=== PATIENT | male | born 1980 | race African-American/Black ===

== ENCOUNTER 2023-01-21 00:58 | Inpatient (IN) | payer MEDICAID, OTHER ==
[~2023-01-21] VITALS: Ht 190.5 cm; Wt 109.5 kg
[2023-01-21 01:27] LABS: Basophils # (auto) 0 10 ^3/uL (0-0.2); Basophils % (auto) 0.2 % (0.0-2.0); Eosinophils # (auto) 0 10 ^3/uL (0-0.8); Eosinophils % (auto) 0.4 % (0.0-7.0); Hematocrit 40.7 % (41.0-53.0); Hemoglobin 13.4 g/dL (13.5-17.5); Lymphocytes # (auto) 0.6 10 ^3/uL (0.4-5.4); Lymphocytes % (auto) 5.8 % (10.0-50.0); Mean Corpuscular Hemoglobin 28.1 pg (28.0-32.0); Mean Corpuscular Hgb Conc. 32.9 g/dL (32.0-36.0); Mean Corpuscular Volume 85.2 fL (80.0-100.0); Monocytes # (auto) 0.6 10 ^3/uL (0-1.3); Monocytes % (auto) 6.3 % (0.0-12.0); Neutrophils # (auto) 8.8 10 ^3/uL (1.6-8.6); Neutrophils % (auto) 87.3 % (37.0-80.0); Red Blood Cells 4.77 10^6/uL (4.5-5.90); White Blood Cell 10.1 10^3/uL (4.4-10.8)
[2023-01-21] MEDS ORDERED: SODIUM CHLORIDE 0.9% 3,250 ML IV ONE (01:30)
[2023-01-21] MEDS ORDERED: ACETAMINOPHEN 325 MG TAB PO ONE (01:30)
[2023-01-21 01:43] LABS: INR 1.06 (0.9-1.15); Prothrombin Time 11.1 sec (9.3-11.8)
[2023-01-21 01:48] LABS: Alanine Aminotransferase 42 U/L (7-40); Albumin 4.7 g/dL (3.2-4.8); Alkaline Phosphatase 49 U/L (46-116); Anion Gap 8 (5-15); Aspartate Aminotransferase 31 U/L (13-40); BUN/Creatinine Ratio 7.9 (10.0-20.0); Blood Urea Nitrogen 9 mg/dL (9-23); Calcium 9.1 mg/dL (8.7-10.4); Carbon Dioxide 23 mmol/L (20-30); Chloride 102 mmol/L (98-107); Glucose 125 mg/dL (74-106); Magnesium 1.8 mg/dL (1.6-2.6); Potassium 3.5 mmol/L (3.5-5.1); Sodium 133 mmol/L (136-145)
[2023-01-21 01:49] LABS: Total Protein 7.7 g/dL (5.7-8.2)
[2023-01-21 02:06] VITALS: PULSE 103; RESP 14; O2SAT 96
[2023-01-21 02:13] LABS: Bilirubin, Total 0.7 mg/dL (0.2-1.0)
[2023-01-21 02:43] LABS: Urine Bacteria NONE SEEN /hpf (None Seen); Urine Blood Negative /uL (Negative); Urine Clarity Clear (Clear); Urine Color Yellow (Yellow); Urine Protein, UAD 2+ (Negative); Urine Specific Gravity 1.022 (1.001-1.035); Urine WBC 1 /hpf (0 - 3); Urine pH 8.5 (5.0-8.0)
[2023-01-21 02:45] LABS: COVID19 ANTIGEN SOFIA FIA NEGATIVE (NEGATIVE)
[2023-01-21 02:46] LABS: Rapid Influenza A Negative (Negative); Rapid Influenza B Negative (Negative)
[2023-01-21] MEDS ORDERED: SODIUM CHLORIDE 0.9% 1,000 ML IV ONE (04:15)
[2023-01-21] MEDS ORDERED: IBUPROFEN 600 MG TAB PO ONE (04:30)
[2023-01-21] MEDS ORDERED: IOHEXOL 350 MG/ML 100ML IJ ONE (05:26)
[2023-01-21] MEDS ORDERED: cefTRIAXone 1GM/50ML D5W 50 ML IV ONE (05:30)
[2023-01-21 07:40] VITALS: PULSE 93; RESP 18; O2SAT 97
[2023-01-21] MEDS ORDERED: ENOXAPARIN SOD 100 MG/1 ML SYRINGE SC ONE (09:15)
[2023-01-21] MEDS ORDERED: MORPHINE SULFATE INJ 2 MG/ml SYRG IV PRN (09:15)
[2023-01-21] MEDS ORDERED: ASPirin 325 MG TAB PO ONE (09:15)
[2023-01-21] MEDS ORDERED: NITROGLYCERIN 0.4 MG SL TAB SL PRN (09:15)
[2023-01-21 09:28] LABS: Triglycerides 79 mg/dL (< 150)
[2023-01-21 09:29] LABS: LDL Cholesterol 110 mg/dL (< 100)
[2023-01-21 09:30] LABS: Cholesterol 171 mg/dL (< 200); HDL Cholesterol 54 mg/dL (40-59)
[2023-01-21] MEDS ORDERED: ENOXAPARIN SOD 120 MG/0.8 ML SYRINGE SC ONE (09:45)
[2023-01-21] MEDS: SODIUM CHLORIDE 0.9% 1,000 ML IV SCH ×3 (11:22→23:09)
[2023-01-21 13:47] LABS: Amphetamine Screen, Urine Neg (NEGATIVE); Barbiturate Scree,Urine Neg (NEGATIVE); Benzodiazephine Screen, Urine Neg (NEGATIVE); Cocaine Screen, Urine Neg (NEGATIVE); Opiate Scree,Urine Neg (NEGATIVE)
[2023-01-21 13:48] LABS: Cannabinoid Screen, Urine Neg (NEGATIVE); Phencyclidine Screen, Urine Neg (NEGATIVE)
[2023-01-21] MEDS: ACETAMINOPHEN 325 MG TAB PO PRN (23:08)
[2023-01-22] VITALS (8 sets, daily range): BP systolic 111–147; BP diastolic 68–97; PULSE 85–109; RESP 18–20; TEMP 98.1–101.6; O2SAT 95–99
[2023-01-22] MEDS ORDERED: MULT-777 OR (01:39)
[2023-01-22] MEDS ORDERED: APPLTAB PO (01:39)
[2023-01-22 06:56] LABS: Alanine Aminotransferase 47 U/L (7-40); Albumin 4.1 g/dL (3.2-4.8); Alkaline Phosphatase 49 U/L (46-116); Anion Gap 6 (5-15); BUN/Creatinine Ratio 7.8 (10.0-20.0); Blood Urea Nitrogen 7 mg/dL (9-23); Carbon Dioxide 26 mmol/L (20-30); Chloride 104 mmol/L (98-107); Glucose 103 mg/dL (74-106); Sodium 136 mmol/L (136-145)
[2023-01-22 06:57] LABS: Aspartate Aminotransferase 31 U/L (13-40); Bilirubin, Total 0.6 mg/dL (0.2-1.0); Total Protein 6.9 g/dL (5.7-8.2)
[2023-01-22 07:32] LABS: Hematocrit 39.6 % (41.0-53.0); Hemoglobin 12.9 g/dL (13.5-17.5); Mean Corpuscular Hemoglobin 27.6 pg (28.0-32.0); Mean Corpuscular Hgb Conc. 32.6 g/dL (32.0-36.0); Mean Corpuscular Volume 84.6 fL (80.0-100.0); Red Blood Cells 4.68 10^6/uL (4.5-5.90); White Blood Cell 7.6 10^3/uL (4.4-10.8)
[2023-01-22 07:35] LABS: Basophils % (manual) 0 (0.0-2.0); Blast Cells 0; Eosinophils % (manual) 0 (0-7); Metamyelocytes % 0; Myelocytes % 0; Promyelocytes % 0; Reactive Lymphocytes 0
[2023-01-22] MEDS: ACETAMINOPHEN 325 MG TAB PO PRN (08:31)
[2023-01-22] MEDS: cefTRIAXone 1GM/50ML D5W 50 ML IV SCH (08:32)
[2023-01-22 09:21] LABS: Band Neutrophils % (manual) 3; Lymphocytes % (manual) 20 (10.0-50.0); Monocytes % (manual) 14 (0-12)
[2023-01-22 09:22] LABS: Platelet Estimate Adequate; RBC Morphology Normal
[2023-01-22] MEDS: ASPirin 81 mg TAB PO SCH (10:51)
[2023-01-22] MEDS: ENOXAPARIN SOD 40 MG/0.4 ML SYRINGE SC SCH (10:52)
[2023-01-22] MEDS: SODIUM CHLORIDE 0.9% 1,000 ML IV SCH (15:15)
[2023-01-23] MEDS: SODIUM CHLORIDE 0.9% 1,000 ML IV SCH ×2 (01:15→11:38)
[2023-01-23] MEDS: ACETAMINOPHEN 325 MG TAB PO PRN (04:46)
[2023-01-23 05:00] VITALS: BP 145/81; PULSE 91; RESP 20; TEMP 98.5; O2SAT 95
[2023-01-23 08:00] VITALS: PULSE 88
[2023-01-23 09:00] VITALS: BP 136/72; PULSE 91; RESP 20; TEMP 98.9; O2SAT 96
[2023-01-23] MEDS: cefTRIAXone 1GM/50ML D5W 50 ML IV SCH (09:12)
[2023-01-23] MEDS: ASPirin 81 mg TAB PO SCH (09:12)
[2023-01-23] MEDS: ENOXAPARIN SOD 40 MG/0.4 ML SYRINGE SC SCH (09:12)
[2023-01-23] MEDS ORDERED: CEPH250C PO (11:09)
[2023-01-23] MEDS ORDERED: HYDR-4902 PO (11:09)
[2023-01-23] MEDS ORDERED: CLIN300C70 PO (11:09)
[2023-01-23] MEDS ORDERED: HYDROcodone-ACET 10/325MG TAB PO ONE (11:15)
[2023-01-23 13:00] VITALS: TEMP 37.2
== END 2023-01-23 14:31 | disposition home or self-care (01) | DRG 203 ==
LOC: ER 00:58 → TELE 09:09 → TELE-WESTW 09:09
PROVIDERS: ADMIT Nurse Practitioner Family; ATTEND Family Medicine
DX: R07.89 Other chest pain (principal); E87.1 Hypo-osmolality and hyponatremia; L03.115 Cellulitis of right lower limb; E11.9 Type 2 diabetes mellitus without complications; Z20.822 Contact with and (suspected) exposure to COVID-19; E66.9 Obesity, unspecified; Z68.30 Body mass index [BMI] 30.0-30.9, adult; Z83.3 Family history of diabetes mellitus
CPT/HCPCS: 36415; 71045; 71275; 80053; 80061; 80307; 81001; 83605; 83735; 83880; 84443; 84484; 85007; 85025; 85027; 85610; 85730; 87040; 87426; 87804; 93005; 93306; 93970; 96361; 96365; G0378

== ENCOUNTER 2024-11-17 00:50 | Inpatient (IN) | payer MEDICAID ==
[~2024-11-17] VITALS: Ht 190.5 cm; Wt 119.2 kg
[~2024-11-17 00:50] MED LIST: APPLTAB PO; CEPH250C PO; CLIN1CAP70 PO; HYDR-4902 PO; MULT-777 OR
[2024-11-17] MEDS ORDERED: PIPERACILLIN-TAZOB 3.375GM 100 ML IV ONE ×2 (01:45→03:00)
[2024-11-17] MEDS ORDERED: MORPHINE SULFATE INJ 2 MG/ml SYRG IV ONE (01:45)
[2024-11-17] MEDS ORDERED: VANCOMYCIN PER PHARMACY 0 MG IV SCH (01:45)
[2024-11-17] MEDS ORDERED: ACETAMINOPHEN 325 MG TAB PO ONE (01:45)
--- NOTE | 2024-11-17 01:46 | ED.PDOC ---
History of Present Illness(SKN HPI Comments Mr. Savage is a 44-year-old male with no past medical history who presented to the ER with a chief complaint of right lower extremity swelling and tenderness for 1 day. Patient reports that he noted right calf tenderness and swelling, along with erythema and warmth starting this morning, he has been also e xperiencing fever and chills, he experienced 5 episodes of vomiting, nonbloody, denies any recent traveling or sick contacts. Patient works as a [employer] and as long hours of standing. Denies numbness or tingling, any neurological deficits. Denies drug use. Patient has a similar episode in 2022. Also reports chronic vertigo. Denies palpitations/chest pain/abdominal pain/shortness of breath/diarrhea or constipation at this time. Patient seen and examined in ER. Right lower extremity is swollen, tender to touch peripherally in the calf muscle, his warm and erythematous. No rashes or wounds noted. Right inguinal lymphadenopathy noted on examination and tender induration in the right medial thigh. Active and passive range of motion intact. Chief Complaint: Lower Extremity Time Seen by MD: 01:20 History of Present Illness: Nurses Notes Allergies: Coded Allergies: NO KNOWN ALLERGIES (Unverified , 01/21/23) Home Meds Active Scripts Hydrocodone-Acetaminophen (Hydrocodone Bitartrate/AC 5-325 mg) 1 Tab Tab, 1 TAB PO Q6HR PRN, #30 TAB Prov:MALINI MEEK MD 01/23/23 Clindamycin Hcl (Clindamycin Hcl) 300 Mg Cap, 1 CAP PO TID, #30 CAP Prov:MALINI MEEK MD 01/23/23 Cephalexin (KEFLEX CAPSULE) 250 Mg Cp, 1 CAP PO QID, #40 CAP Prov:MALINI MEEK MD 01/23/23 Reported Medications Apple Cider Vinegar (Apple Cider Vinegar) 500 Mg Tab, 500 MG PO, TAB 01/22/23 Multiple Vitamins W/ Minerals (MULTI COMPLETE) Complete Cap, 1 OR, CAP 01/22/23 Information Source: Patient Mode of Arrival: Ambulatory Past Medical History PAST MEDICAL HISTORY: Denies Surgical History: Denies all surgeries Family History Family History: Unknown Social History Smoker: Non-Smoker Alcohol: Denies ETOH Use Drugs: Denies Drug Use Constitutional: reports: chills, fever EENTM: denies: blurred vision, double vision, ear bleeding, ear discharge, ear drainage, ear pain, ear ringing, eye pain, eye redness, hearing loss, mouth pain, mouth swelling, nasal discharge, nose bleeding, nose congestion, nose pain, photophobia, tearing, throat pain, throat swelling, voice changes, others Respiratory: denies: cough, hemoptysis, orthopnea, SOB at rest, shortness of breath, SOB with excertion, stridor, wheezing, others Cardiovascular: denies: chest pain, dizzy spells, diaphoresis, Dyspnea on exertion, edema, irregular heart beat, left arm pain, lightheadedness, palpitations, PND, syncope, others Gastrointestinal: denies: abdomen distended, abdominal pain, blood streaked bowels, constipated, diarrhea, dysphagia, difficulty swallowing, hematemesis, melena, nausea, poor appetite, poor fluid intake, rectal bleeding, rectal pain, vomiting, others Genitourinary: denies: burning, dysuria, flank pain, frequency, hematuria, incontinence, penile discharge, penile sore, pain, testicle pain, testicle swelling, urgency, others Neurological: denies: dizziness, fainting, headache, left sided numbness, left sided weakness, numbness, paresthesia, pre-existing deficit, right sided numbness, right sided weakness, seizure, speech problems, tingling, tremors, weakness, others Musculoskeletal: reports: joint swelling, muscle pain Integumetry: reports: change in color Allergic/Immunocompromised: denies: Difficulty Healing, Frequent Infections, Hives, Itching, others Hematologic/Lymphatic: denies: anemia, blood clots, easy bleeding, easy bruising, swollen glands, others Endocrine: denies: excessive hunger, excessive sweating, excessive thirst, excessive urination, flushing, intolerance to cold, intolerance to heat, unex plained weight gain, unexplained weight loss, others Psychiatric: denies: anxiety, bipolar disorder, depression, hopeless, panic disorder, schizophrenia, sleepless, suicidal, others Physical Exam General Appearance: Mild Distress HEENT: Other (Dry mucosal membranes) Neck: NOT DONE Respiratory: No Accessory Muscle Use, No Respiratory Distress, Normal Breath Sounds Cardiovascular: Tachycardia Breast Exam: Deferred Gastrointestinal: Non Tender, Normal Bowel Sounds Genitalia: Deferred Pelvic: Deferred Rectal: Deferred Extremities: Calf tenderness, Leg edema, Normal range of motion, Other (Right lower extremity is swollen, tender to touch peripherally in the calf muscle, his warm and erythematous. No rashes or wounds noted. Right inguinal ly mphadenopathy noted on examination and tender induration in the right medial thigh.) Neurologic: NOT DONE Cerebellar Function: NOT DONE Reflexes: NOT DONE Skin: Dry Lymphatic: Inguinal Node Tender (R) Was a procedure done? Was a procedure done?: No Differential Diagnosis (INTG) Differential Diagnosis: Abrasion, Cellulitis, Hematoma Differential Diagnosis: Abscess Abscess: Bacteremia, Erysipelas X-Ray, Labs, Meds, VS Vital Signs Date Time Temp Pulse Resp B/P (MAP) Pulse Ox O2 Delivery O2 Flow Rate FiO2 11/17/24 02:27 101.8 11/17/24 01:47 101.8 112 20 127/75 (92) 96 101.8 11/17/24 01:47 112 20 96 Room Air* 0 21 11/17/24 01:47 101.8 112 20 127/75 (92) 96 101.8 11/17/24 00:54 102.9 117 18 100/67 96 102.9 Lab Test 11/17/24 01:47 Range/Units White Blood Count 16.3 H 4.4-10.8 10^3/uL Red Blood Count 4.73 4.5-5.90 10^6/uL Hemoglobin 13.2 L 13.5-17.5 g/dL Hematocrit 39.2 L 41.0-53.0 % Mean Corpuscular Volume 82.9 80.0-100.0 fL Mean Corpuscular Hemoglobin 27.8 L 28.0-32.0 pg Mean Corpuscular Hemoglobin Concent 33.6 32.0-36.0 g/dL Red Cell Distribution Width 13.6 11.8-14.3 % Platelet Count 195 140-450 10^3/uL Mean Platelet Volume 7.8 6.9-10.8 fL Neutrophils (%) (Auto) 92.5 H 37.0-80.0 % Lymphocytes (%) (Auto) 3.6 L 10.0-50.0 % Monocytes (%) (Auto) 3.8 0.0-12.0 % Eosinophils (%) (Auto) 0.0 0.0-7.0 % Basophils (%) (Auto) 0.1 0.0-2.0 % Neutrophils # (Auto) 15.1 H 1.6-8.6 10 ^3/uL Lymphocytes # (Auto) 0.6 0.4-5.4 10 ^3/uL Monocytes # (Auto) 0.6 0-1.3 10 ^3/uL Eosinophils # (Auto) 0 0-0.8 10 ^3/uL Basophils # (Auto) 0 0-0.2 10 ^3/uL Nucleated Red Blood Cells 0.0 % Sodium Level 135 L 136-145 mmol/L Potassium Level 3.4 L 3.5-5.1 mmol/L Chloride Level 100 98-107 mmol/L Carbon Dioxide Level 24 20-31 mmol/L Anion Gap 11 5-15 Blood Urea Nitrogen 10 9-23 mg/dL Creatinine 1.25 0.700-1.30 mg/dL Glomerular Filtration Rate Calc 73 >90 mL/min BUN/Creatinine Ratio 8.0 L 10.0-20.0 Serum Glucose 104 74-106 mg/dL Hemoglobin A1c 6.6 H <5.7 % A1C Lactic Acid Level 2.4 *H 0.4-2.0 mmol/L Calcium Level 8.9 8.7-10.4 mg/dL Phosphorus Level 3.2 2.4-5.1 mg/dL Total Bilirubin 0.9 0.2-1.0 mg/dL Aspartate Amino Transferase (AST) 19 13-40 U/L Alanine Aminotransferase (ALT) 25 7-40 U/L Alkaline Phosphatase 37 L 46-116 U/L C-Reactive Protein High Sensitivity 12.49 H <1.0 mg/dL Total Protein 7.5 5.7-8.2 g/dL Albumin 4.5 3.2-4.8 g/dL Vitamin B12 Level Pending Vitamin D 25-Hydroxy Pending Thyroid Stimulating Hormone (TSH) 0.30 L 0.55-4.78 uIU/mL Current Medications Medications (Trade) Dose Ordered Sig/Francisco Route Start Time Stop Time Status Last Admin Sodium Chloride 2,450 ml @ 2,450 mls/hr ONCE ONCE IV 11/17/24 01:45 11/17/24 02:44 DC 11/17/24 02:13 Piperacillin Sod/ Tazobactam Sod 100 ml @ 100 mls/hr ONCE ONCE IV 11/17/24 02:00 11/17/24 02:59 DC 11/17/24 02:13 Acetaminophen (Tylenol Tablet Or Capsule) 1,000 mg ONCE ONCE PO 11/17/24 02:30 11/17/24 02:31 DC 11/17/24 02:27 Potassium Bicarbonate (Klor-Con/Ef) 50 meq ONCE ONCE PO 11/17/24 02:30 11/17/24 02:31 DC 11/17/24 02:54 Ketorolac Tromethamine (Toradol Injection) 15 mg ONCE ONCE IV 11/17/24 02:30 11/17/24 02:31 DC 11/17/24 02:55 X-Ray, Labs, Meds, VS Comment Lower extremity CT shows 1. No acute osseous abnormality. 2. Subcutaneous edema in the inner thigh and at the level of the knee which may reflect cellulitis. No fluid collection. 3. Right groin lymphadenopathy, likely reactive. Time of 1ST Reevaluation: 03:00 Reevaluation 1ST: Improved (Pain has improved overall feels better) Consultation: PCP Patient Education/Counseling: Diagnosis, Treatment Family Education/Counseling: No Family Present SEPSIS Sepsis Screen Date sepsis recognized/suspect: Nov 17, 2024 Time Sepsis recognized/suspect: 55 Recent Procedure: No On Antibiotic Therapy: No Respiratory Rate >20: No Heart Rate >90: Yes Temp<36 C (96.8 F) or >38.3 C: Yes SBP <90 or MAP <65 mmHG: No New Acute Mental Status Change: No Is the patient on CPAP, BIPAP,: No Physician Orders Blood Culture (11/17/24 01:33) Vancomycin Per Pharmacy (11/17/24 01:45) Rt Lower Dvt (11/17/24 01:36) Drug Screen (11/17/24 01:38) Urinalysis (11/17/24 01:38) Lower Extremity Non Joint Righ (11/17/24 01:36) Vitamin D, 25-Hydroxy (11/17/24 02:07) Vitamin B12 (11/17/24 02:07) Cooling [place] (11/17/24 02:30) Implement Cooling Measures (11/17/24 02:30) Vital Signs Date Time Temp Pulse Resp B/P (MAP) Pulse Ox O2 Delivery O2 Flow Rate FiO2 10/13/25 02:27 101.8 11/17/24 01:47 101.8 112 20 127/75 (92) 96 101.8 11/17/24 01:47 112 20 96 Room Air* 0 21 11/17/24 01:47 101.8 112 20 127/75 (92) 96 101.8 11/17/24 00:54 102.9 117 18 100/67 96 102.9 Laboratory Tests Test 11/17/24 01:47 Lactic Acid Level 2.4 mmol/L (0.4-2.0) *H White Blood Count 16.3 10^3/uL (4.4-10.8) H Medications Medications Dose Ordered Sig/Francisco Route Start Time Stop Time Status Last Admin Dose Admin Acetaminophen 1,000 mg ONCE ONCE PO 11/17/24 02:30 11/17/24 02:31 DC 11/17/24 02:27 Ketorolac Tromethamine 15 mg ONCE ONCE IV 11/17/24 02:30 11/17/24 02:31 DC 11/17/24 02:55 Piperacillin Sod/ Tazobactam Sod 100 ml @ 100 mls/hr ONCE ONCE IV 11/17/24 02:00 11/17/24 02:59 DC 11/17/24 02:13 Potassium Bicarbonate 50 meq ONCE ONCE PO 11/17/24 02:30 11/17/24 02:31 DC 11/17/24 02:54 Sodium Chloride 2,450 ml @ 2,450 mls/hr ONCE ONCE IV 11/17/24 01:45 11/17/24 02:44 DC 11/17/24 02:13 Departure 1 Departure Time of Disposition: 02:00 Impression: Primary Impression: Cellulitis Disposition: 09 ADMITTED INPATIENT Condition: Fair Comments Patient admitted for further workup and management of right lower extremity cellulitis and sepsis secondary to cellulitis Blood cultures then IV vancomycin, IV Zosyn administered 30 mL/kg bolus administered Critical Care Note Critical Care Time?: No Stability Stability form required: KARINA Ferguson RESIDENT Nov 17, 2024 01:46
[2024-11-17 01:47] VITALS: PULSE 112; RESP 20; O2SAT 96
[2024-11-17 02:00] LABS: Hematocrit 39.2 % (41.0-53.0); Hemoglobin 13.2 g/dL (13.5-17.5); Mean Corpuscular Hemoglobin 27.8 pg (28.0-32.0); Mean Corpuscular Volume 82.9 fL (80.0-100.0); Nucleated Red Blood Cells % 0.0 %
[2024-11-17] MEDS: PIPERACILLIN-TAZOB 3.375GM 100 ML IV ONE (02:13)
[2024-11-17] MEDS: SODIUM CHLORIDE 0.9% 2,450 ML IV ONE (02:13)
[2024-11-17 02:19] LABS: Alanine Aminotransferase 25 U/L (7-40); Albumin 4.5 g/dL (3.2-4.8); Anion Gap 11 (5-15); BUN/Creatinine Ratio 8.0 (10.0-20.0); Blood Urea Nitrogen 10 mg/dL (9-23); Calcium 8.9 mg/dL (8.7-10.4); Carbon Dioxide 24 mmol/L (20-31); Chloride 100 mmol/L (98-107); Glucose 104 mg/dL (74-106); Total Protein 7.5 g/dL (5.7-8.2)
[2024-11-17 02:20] LABS: Bilirubin, Total 0.9 mg/dL (0.2-1.0)
[2024-11-17 02:22] LABS: Lactic Acid w/Reflex 2.4 mmol/L (0.4-2.0)
[2024-11-17 02:25] LABS: Alkaline Phosphatase 37 U/L (46-116); Potassium 3.4 mmol/L (3.5-5.1); Sodium 135 mmol/L (136-145)
[2024-11-17] MEDS: ACETAMINOPHEN 500 MG TAB or CAP PO ONE (02:27)
[2024-11-17] MEDS ORDERED: SODIUM CHLORIDE 0.9% 1,000 ML IV SCH (02:45)
--- NOTE | 2024-11-17 02:46 | DVHHPRES ---
History of Present Illness Resident Creating Document: DARELL MÉNDEZ History of Present Illness Mr. Savage is 44-year-old male with prior medical history of vertigo, who presents today with chief complaint of left lower extremity pain. The patient states that today he had onset of throbbing pain in left calf, non-radiating, 9/10 intensity, associated with redness, swelling, hot to the touch, and lymphadenopathy in left groin. Additionally refers febrile sensation, chills, 5 emetic episodes, and diarrhea. He denies chest pain, palpitations, suppuration from left calf, and other symptoms. Due to presents to the symptoms the patient came to the emergency department seeking medical attention. On evaluation in the ED, in mild distress, febrile, and tachycardic. Initial labs show leukocytosis with neutrophilia, normocytic anemia, hypokalemia, lactic acid 2.4, and CRP 12.49. The patient was started on sepsis protocol with IV fluids and IV antibiotics. He was admitted for further workup and monitoring. Past medical history: Vertigo Surgical: Denies Allergies: Seasonal Social: Denies prior drug, alcohol, and tobacco use. States he lives alone and feels safe. Review of Systems Review of Systems Constitutional: Refers febrile sensation, chills, Denies weight loss HEENT: Denies changes in vision and hearing. Respiratory: Denies shortness of breath and cough Cardiovascular: Denies chest discomfort or palpitations GI: Denies abdominal distention, abdominal pain, diarrhea : Denies dysuria and urinary frequency. Musculoskeletal: Refers redness, swelling, he to the touch, and throbbing pain of left calf Skin: As described above. Neurological: denies dizziness headache vision or hearing problems Allergies: Coded Allergies: NO KNOWN ALLERGIES (Unverified , 01/21/23) Medications Current Medications Medications Dose Ordered Sig/Francisco Route Start Time Stop Time Status Last Admin Dose Admin Vancomycin HCl 0 ml @ 0 mls/hr UD IV 11/17/24 01:45 UNV Vancomycin HCl 200 ml @ 200 mls/hr Q1H IV 11/17/24 03:00 11/17/24 04:59 Enoxaparin Sodium 40 mg DAILY SC 11/17/24 10:00 Acetaminophen 650 mg Q6HP PRN PO 11/17/24 02:45 Ketorolac Tromethamine 15 mg Q6HPRN PRN IV 11/17/24 02:45 11/22/24 02:44 UNV Sodium Chloride 1,000 ml @ 100 mls/hr Q10H IV 11/17/24 02:45 Exam Vital Signs Vital Signs Date Time Temp Pulse Resp B/P (MAP) Pulse Ox O2 Delivery O2 Flow Rate FiO2 11/17/24 02:27 101.8 11/17/24 00:54 117 18 100/67 96 Exam General: The patient alert and oriented in person place and time. Patient following commands HEENT: Normocephalic, atraumatic, normal reactive pupils, EOM intact, pink conjunctiva, pink dry mucous membrane Respiratory/pulmonary: Bilateral chest expansion, no pain on palpation of chest wall, clear lungs bilaterally, vesicular murmurs present in almost all lung kothari, no associated crackles or wheezes. Cardiovascular: Tachycardic, normal S1 and S2, no murmurs Abdomen: Obese, Abdomen nondistended, normal bowel sounds, soft, there is no pain to palpation in any of the abdominal quadrants, no palpable masses. Extremities: No deformities, left calf is erythematous without distinct borders, swollen compared to right calf, hot to the touch, painful to palpation, without presence of open wounds, no suppuration is observed, examination of rest of left extremity and right lower extremity without alterations Skin: As described above, there is no sacral edema present at this time. Neurological: Intact cranial nerves with no focal neurologic deficits Labs/Xrays Labs Test 11/17/24 01:47 Range/Units White Blood Count 16.3 H 4.4-10.8 10^3/uL Red Blood Count 4.73 4.5-5.90 10^6/uL Hemoglobin 13.2 L 13.5-17.5 g/dL Hematocrit 39.2 L 41.0-53.0 % Mean Corpuscular Volume 82.9 80.0-100.0 fL Mean Corpuscular Hemoglobin 27.8 L 28.0-32.0 pg Mean Corpuscular Hemoglobin Concent 33.6 32.0-36.0 g/dL Red Cell Distribution Width 13.6 11.8-14.3 % Platelet Count 195 140-450 10^3/uL Mean Platelet Volume 7.8 6.9-10.8 fL Neutrophils (%) (Auto) 92.5 H 37.0-80.0 % Lymphocytes (%) (Auto) 3.6 L 10.0-50.0 % Monocytes (%) (Auto) 3.8 0.0-12.0 % Eosinophils (%) (Auto) 0.0 0.0-7.0 % Basophils (%) (Auto) 0.1 0.0-2.0 % Neutrophils # (Auto) 15.1 H 1.6-8.6 10 ^3/uL Lymphocytes # (Auto) 0.6 0.4-5.4 10 ^3/uL Monocytes # (Auto) 0.6 0-1.3 10 ^3/uL Eosinophils # (Auto) 0 0-0.8 10 ^3/uL Basophils # (Auto) 0 0-0.2 10 ^3/uL Nucleated Red Blood Cells 0.0 % Sodium Level 135 L 136-145 mmol/L Potassium Level 3.4 L 3.5-5.1 mmol/L Chloride Level 100 98-107 mmol/L Carbon Dioxide Level 24 20-31 mmol/L Anion Gap 11 5-15 Blood Urea Nitrogen 10 9-23 mg/dL Creatinine 1.25 0.700-1.30 mg/dL Glomerular Filtration Rate Calc 73 >90 mL/min BUN/Creatinine Ratio 8.0 L 10.0-20.0 Serum Glucose 104 74-106 mg/dL Lactic Acid Level 2.4 *H 0.4-2.0 mmol/L Calcium Level 8.9 8.7-10.4 mg/dL Total Bilirubin 0.9 0.2-1.0 mg/dL Aspartate Amino Transferase (AST) 19 13-40 U/L Alanine Aminotransferase (ALT) 25 7-40 U/L Alkaline Phosphatase 37 L 46-116 U/L C-Reactive Protein High Sensitivity 12.49 H <1.0 mg/dL Total Protein 7.5 5.7-8.2 g/dL Albumin 4.5 3.2-4.8 g/dL SEPSIS Sepsis Screen Date sepsis recognized/suspect: Nov 17, 2024 Time Sepsis recognized/suspect: 55 Recent Procedure: No On Antibiotic Therapy: No Respiratory Rate >20: No Heart Rate >90: Yes Temp<36 C (96.8 F) or >38.3 C: Yes SBP <90 or MAP <65 mmHG: No New Acute Mental Status Change: No Is the patient on CPAP, BIPAP,: No Physician Orders Blood Culture (11/17/24 01:33) Vancomycin Per Pharmacy (11/17/24 01:45) Rt Lower Dvt (11/17/24 01:36) Drug Screen (11/17/24 01:38) Urinalysis (11/17/24 01:38) Vancomycin 1gm/200ml Pm (11/17/24 03:00) Piperacillin-Tazob 3.375gm (Zosyn 3.375g (11/17/24 02:00) Lower Extremity Non Joint Righ (11/17/24 01:36) Hemoglobin A1c (11/17/24 02:07) Phosphorus (11/17/24 02:07) Thyroid Stimulating Hormone (11/17/24 02:07) Vitamin D, 25-Hydroxy (11/17/24 02:07) Vitamin B12 (11/17/24 02:07) Cooling [place] (11/17/24 02:30) Implement Cooling Measures (11/17/24 02:30) Admit (11/17/24 02:36) Allergies (11/17/24 02:36) Code Status (11/17/24 02:36) Enoxaparin Sodium (Lovenox) (11/17/24 10:00) Condition: Stable (11/17/24 02:36) Acetaminophen Tablet (Tylenol Tablet) (11/17/24 02:45) Stat Ekg For Chest Pain (11/17/24 02:36) Notify Md Of Changes From Base (11/17/24 02:36) Emergency Dysrhythmia Protocol (11/17/24 02:36) Rhythm Strips Once Every Shift (11/17/24 02:36) Bilat Lower Dvt (11/17/24 02:36) Regular Diet (11/17/24 Breakfast) Ketorolac Injection (Toradol Injection) (11/17/24 02:45) Sodium Chloride 0.9% (11/17/24 02:45) Vital Signs Date Time Temp Pulse Resp B/P (MAP) Pulse Ox O2 Delivery O2 Flow Rate FiO2 11/17/24 02:27 101.8 11/17/24 00:54 102.9 117 18 100/67 96 102.9 Laboratory Tests Test 11/17/24 01:47 Lactic Acid Level 2.4 mmol/L (0.4-2.0) *H White Blood Count 16.3 10^3/uL (4.4-10.8) H Medications Medications Dose Ordered Sig/Francisco Route Start Time Stop Time Status Last Admin Dose Admin Acetaminophen 1,000 mg ONCE ONCE PO 11/17/24 02:30 11/17/24 02:31 DC 11/17/24 02:27 1,000 MG Piperacillin Sod/ Tazobactam Sod 100 ml @ 100 mls/hr ONCE ONCE IV 11/17/24 02:00 11/17/24 02:59 11/17/24 02:13 100 MLS/HR Sodium Chloride 2,450 ml @ 2,450 mls/hr ONCE ONCE IV 11/17/24 01:45 11/17/24 02:44 DC 11/17/24 02:13 2,450 MLS/HR Assessment/Plan Assessment/Plan Assessment and Plan: Sepsis secondary Cellulitis of the Right Calf - Right lower extremity noncontrast CT: Subcutaneous edema in the inner thigh and at the level of the knee which may reflect cellulitis, no fluid collection, right groin lymphadenopathy, likely reactive. - NS 2450 cc IV (30 cc/kg ) once - NS maintenance 100 cc/hr - Zosyn IV q 8 hours - Vancomycin IV per pharmacy protocol - Acetaminophen 625 mg PO q 6 hours PRN - Toradol 15 mg IV q 6 hours PRN - Blood cultures have been ordered - Ordered STI panel New onset Type 2 Diabetes Mellitus, HbA1c 6.6 - Mild SSI - Accu-cheks - Consistent Carbohydrate Diet R/o DVT - Bilateral lower extremity venous duplex Hypokalemia, 3.4 - Potassium 50 mEq p.o. once Normocytic Anemia - monitor H&H Obesity, 32.7 kg/m2 - I have counseled the patient on healthy lifestyle modifications Diet: Consistent Carbohydrate Diet DVT prophylaxis: Enoxaparin 40 mg SC daily GI prophylaxis: Not indicated Case discussed with Dr. Soares Goals of care discussed with the patient for over 26 minutes. FULL CODE. Plan discussed with: Patient, Other My Orders Orders - DARELL MÉNDEZ RESIDENT Procedure Category Date Status Time Hemoglobin A1c LAB 11/17/24 In Process 02:07 Phosphorus LAB 11/17/24 In Process 02:07 Thyroid Stimulating LAB 11/17/24 In Process Hormone 02:07 Vitamin D, 25-Hydroxy LAB 11/17/24 In Process 02:07 Vitamin B12 LAB 11/17/24 In Process 02:07 Admit ADMIT 11/17/24 Transmitted 02:36 Allergies LORENE 11/17/24 In Process 02:36 Code Status CODE 11/17/24 Transmitted 02:36 Enoxaparin Sodium PHA 11/17/24 In Process (Lovenox) 10:00 Condition: Stable LORENE 11/17/24 In Process 02:36 Acetaminophen Tablet PHA 11/17/24 In Process (Tylenol Tablet) 02:45 Stat Ekg For Chest [facility] 11/17/24 In Process Pain 02:36 Notify Md Of Changes [facility] 11/17/24 In Process From Base 02:36 Emergency Dysrhythmia [place] 11/17/24 In Process Protocol 02:36 Rhythm Strips Once [place] 11/17/24 In Process Every Shift 02:36 Bilat Lower Dvt US 11/17/24 Logged 02:36 Regular Diet DIET 11/17/24 Transmitted Breakfast Ketorolac Injection PHA 11/17/24 Pending (Toradol Injection) 02:45 Sodium Chloride 0.9% [facility] 11/17/24 In Process 02:45 Date of Service: Nov 17, 2024 Billing Provider: ALEJANDRO THOMASON MD Common Visit Codes: [id number]-[id number] INP/OBS CARE (HIGH) Secondary Visit Codes: [id number] CARE PLAN 30 MINUTES DARELL MÉNDEZ RESIDENT Nov 17, 2024 02:46 MARILIA BRODY RESIDENT Nov 17, 2024 08:53
[2024-11-17] MEDS: POTASSIUM EFFERVESENT TAB 25 MEQ PO ONE (02:54)
[2024-11-17] MEDS: KETOROLAC TROMETH 30 MG/ML 1ML VIAL IV ONE (02:55)
[2024-11-17] MEDS: VANCOMYCIN 1GM/200ML PM 200 ML IV SCH (03:00)
[2024-11-17] MEDS: VANCOMYCIN 1GM/250ML KIT 250 ML IV ONE (03:28)
--- NOTE | 2024-11-17 04:08 | DVH ---
CLINICAL INDICATION: CT right LE w/o con, R calf swelling and redness TECHNIQUE: Noncontrast CT of the right lower extremity was performed. Sagittal and coronal reformatte d images are provided. COMPARISON: None CT Dose: CTDI volume is 14.71 mGy. Dose-length product is 1864.8 mGy*cm FINDINGS: No fracture or dislocation. No evidence of cortical erosion. There subcutaneous edema in t he inner thigh and at the level of the knee. No fluid collection. There is an increased number of rig ht groin lymph nodes measuring up to 1.5 cm in short axis. Joint spaces are maintained. IMPRESSION: 1. No acute osseous abnormality. 2. Subcutaneous edema in the inner thigh and at the level of the knee which may reflect cellulitis. No fluid collection. 3. Right groin lymphadenopathy, likely reactive. All CT scans at this medical facility are performed using dose modulation techniques as appropriate t o a performed exam including the following: Automated exposure control was utilized; adjustment of th e MA and/or KV according to patient size; and use of iterative reconstruction technique.
[2024-11-17 04:28] LABS: Hematocrit 37.8 % (41.0-53.0); Hemoglobin 12.6 g/dL (13.5-17.5); Mean Corpuscular Hemoglobin 27.8 pg (28.0-32.0); Mean Corpuscular Volume 83.7 fL (80.0-100.0); Nucleated Red Blood Cells % 0.0 %
[2024-11-17 04:51] LABS: Urine Protein, UAD Negative (Negative)
[2024-11-17 04:56] LABS: Anion Gap 12 (5-15); Carbon Dioxide 22 mmol/L (20-31); Chloride 104 mmol/L (98-107); Potassium 3.7 mmol/L (3.5-5.1); Sodium 138 mmol/L (136-145)
[2024-11-17] MEDS ORDERED: DEXTROSE (50%) 50ML SYRG IV PRN (05:00)
[2024-11-17 05:02] LABS: BUN/Creatinine Ratio 8.1 (10.0-20.0); Blood Urea Nitrogen 9 mg/dL (9-23); Glucose 83 mg/dL (74-106)
[2024-11-17 05:09] LABS: Calcium 8.1 mg/dL (8.7-10.4)
[2024-11-17 05:11] LABS: Amphetamine Screen, Urine Neg (NEGATIVE); Barbiturate Scree,Urine Neg (NEGATIVE); Benzodiazephine Screen, Urine Neg (NEGATIVE); Cannabinoid Screen, Urine Neg (NEGATIVE); Cocaine Screen, Urine Neg (NEGATIVE); Opiate Scree,Urine Neg (NEGATIVE); Phencyclidine Screen, Urine Neg (NEGATIVE)
[2024-11-17] MEDS ORDERED: PIPERACILLIN-TAZOB 3.375GM 100 ML IV SCH (06:00)
[2024-11-17] MEDS: SODIUM CHLORIDE 0.9% 1,000 ML IV SCH (08:30)
--- NOTE | 2024-11-17 08:49 | DVH ---
US BiLat Lower DVT HISTORY: R/o DVT COMPARISON: CT LOWER EXTREMITY NON JOINT RIGH on DOS: 11/17/24, US BILAT LOWER DVT on DOS: 01/21/23 TECHNIQUE: Duplex doppler evaluation of the deep venous system of the lower extremity from the common femoral veins, superficial femoral vein, great saphenous vein, deep femoral vein, popliteal vein, an d calf veins, including color doppler and spectral/pulsed waveform analysis, was performed. FINDINGS: Right: - Common femoral vein: Compressible - Deep femoral vein: Compressible - Femoral vein: Compressible - Popliteal vein: Compressible - Posterior tibial vein: Waveforms present - Other: Prominent right inguinal lymph nodes. Left: - Common femoral vein: Compressible - Deep femoral vein: Compressible - Femoral vein: Compressible - Popliteal vein: Compressible - Posterior tibial vein: Waveforms present - Other: Nothing IMPRESSION: No right or left lower extremity deep venous thrombosis.
[2024-11-17] MEDS: InsuLIN REG 1unit/0.01ml Soln (100units/ml) SC SCH (09:33)
[2024-11-17] MEDS: ACCU-CHEK COMFORT CURVE STRIP VI SCH (09:33)
[2024-11-17] MEDS: ENOXAPARIN SOD 40 MG/0.4 ML SYRINGE SC SCH (09:34)
--- NOTE | 2024-11-17 09:58 | DVHDSRES ---
Discharge Summary Date of Admission Resident Creating Document: MEI TALLEY Nov 17, 2024 at 02:36 Date of Discharge: Nov 17, 2024 Admitting Diagnosis Sepsis due to right leg cellulitis Labs/Diagnostic Data: Laboratory Results Test 11/17/24 09:32 11/17/24 04:02 11/17/24 03:47 11/17/24 01:47 POC Glucose 89 mg/dl (70-106) White Blood Count 13.9 10^3/uL (4.4-10.8) Red Blood Count 4.52 10^6/uL (4.5-5.90) Hemoglobin 12.6 g/dL (13.5-17.5) Hematocrit 37.8 % (41.0-53.0) Mean Corpuscular Volume 83.7 fL (80.0-100.0) Mean Corpuscular Hemoglobin 27.8 pg (28.0-32.0) Mean Corpuscular Hemoglobin Concent 33.3 g/dL (32.0-36.0) Red Cell Distribution Width 13.9 % (11.8-14.3) Platelet Count 173 10^3/uL (140-450) Mean Platelet Volume 8.2 fL (6.9-10.8) Neutrophils (%) (Auto) 91.3 % (37.0-80.0) Lymphocytes (%) (Auto) 5.1 % (10.0-50.0) Monocytes (%) (Auto) 3.4 % (0.0-12.0) Eosinophils (%) (Auto) 0.0 % (0.0-7.0) Basophils (%) (Auto) 0.2 % (0.0-2.0) Neutrophils # (Auto) 12.7 10 ^3/uL (1.6-8.6) Lymphocytes # (Auto) 0.7 10 ^3/uL (0.4-5.4) Monocytes # (Auto) 0.5 10 ^3/uL (0-1.3) Eosinophils # (Auto) 0 10 ^3/uL (0-0.8) Basophils # (Auto) 0 10 ^3/uL (0-0.2) Nucleated Red Blood Cells 0.0 % Sodium Level 138 mmol/L (136-145) Potassium Level 3.7 mmol/L (3.5-5.1) Chloride Level 104 mmol/L (98-107) Carbon Dioxide Level 22 mmol/L (20-31) Anion Gap 12 (5-15) Blood Urea Nitrogen 9 mg/dL (9-23) Creatinine 1.11 mg/dL (0.700-1.30) Glomerular Filtration Rate Calc 84 mL/min (>90) BUN/Creatinine Ratio 8.1 (10.0-20.0) Serum Glucose 83 mg/dL (74-106) Lactic Acid Level 1.6 mmol/L (0.4-2.0) Calcium Level 8.1 mg/dL (8.7-10.4) Treponema pallidum Antibody Reactive (Negative) HIV (1&2) Antibody Negative (Negative) Urine Color Light-yellow (Yellow) Urine Clarity Clear (Clear) Urine pH 6.0 (5.0-9.0) Urine Specific [place] 1.009 (1.001-1.035) Urine Protein Negative (Negative) Urine Ketones Negative (Negative) Urine Blood Negative /uL (Negative) Urine Nitrite Negative (Negative) Urine Bilirubin Negative (Negative) Urine Urobilinogen Normal mg/dL (Negative) Urine Leukocyte Esterase 2+ /uL (Negative) Urine RBC None seen /hpf (0 - 3) Urine Microscopic WBC 33 /HPF (0-3) Urine Squamous Epithelial Cells Few /hpf (<5) Urine Bacteria None seen /hpf (None Seen) Urine Glucose Normal mg/dL (Normal) Urine Opiates Screen Neg (NEGATIVE) Urine Fentanyl Screen Neg (NEGATIVE) Urine Barbiturates Screen Neg (NEGATIVE) Urine Phencyclidine Screen Neg (NEGATIVE) Urine Amphetamines Screen Neg (NEGATIVE) Urine Benzodiazepines Screen Neg (NEGATIVE) Urine Cocaine Screen Neg (NEGATIVE) Urine Cannabinoids Screen Neg (NEGATIVE) Hemoglobin A1c 6.6 % A1C (<5.7) Phosphorus Level 3.2 mg/dL (2.4-5.1) Total Bilirubin 0.9 mg/dL (0.2-1.0) Aspartate Amino Transferase (AST) 19 U/L (13-40) Alanine Aminotransferase (ALT) 25 U/L (7-40) Alkaline Phosphatase 37 U/L (46-116) C-Reactive Protein High Sensitivity 12.49 mg/dL (<1.0) Total Protein 7.5 g/dL (5.7-8.2) Albumin 4.5 g/dL (3.2-4.8) Thyroid Stimulating Hormone (TSH) 0.30 uIU/mL (0.55-4.78) Other Laboratory Tests 11/17/24 04:02 Brief Hx & Hospital Course: Mr. George is 44-year-old male with prior medical history of vertigo, who presents today with chief complaint of left lower extremity pain. The patient states that today he had onset of throbbing pain in left calf, non-radiating, 9/10 intensity, associated with redness, swelling, hot to the touch, and lymphadenopathy in left groin. Additionally refers febrile sensation, chills, 5 emetic episodes, and diarrhea. He denies chest pain, palpitations, suppuration from left calf, and other symptoms. Due to presents to the symptoms the patient came to the emergency department seeking medical attention. On evaluation in the ED, in mild distress, febrile, and tachycardic. Initial labs show leukocytosis with neutrophilia, normocytic anemia, hypokalemia, lactic acid 2.4, and CRP 12.49. The patient was started on sepsis protocol with IV fluids and IV antibiotics. He was admitted for further workup and monitoring. Past medical history: Vertigo Surgical: Denies Allergies: Seasonal Social: Denies prior drug, alcohol, and tobacco use. States he lives alone and feels safe. Patient was treated with vancomycin and Zosyn for sepsis due to cellulitis. DVT was ruled out. However, before completing the treatment patient eloped. Iwas assigned to see the patient this morning, however I could not see him because he eloped before that, against medical advice. Examination was not performed because I could not see the patient. Operations or Procedures PATIENT: ZAID GEORGE ACCT: [id number] UNIT: [id number] : 1980 LOC: OVERFLOW ROOM / BED: [facility] / AGE / SEX: 44 / M ADM STATUS: ADM IN SERVICE [id number] ORDERING PHYSICIAN: DARELL MÉNDEZ RESIDENT PROCEDURE(s): BLDVT - BiLat Lower DVT REASON: R/o DVT ORDER NUMBER(s): [id number], ACCESSION NUMBER(s): [id number] US BiLat Lower DVT HISTORY: R/o DVT COMPARISON: CT LOWER EXTREMITY NON JOINT RIGH on DOS: 11/17/24, US BILAT LOWER DVT on DOS: 01/21/23 TECHNIQUE: Duplex doppler evaluation of the deep venous system of the lower extremity from the common femoral veins, superficial femoral vein, great saphenous vein, deep femoral vein, popliteal vein, and calf veins, including color doppler and spectral/pulsed waveform analysis, was performed. FINDINGS: Right: - Common femoral vein: Compressible - Deep femoral vein: Compressible - Femoral vein: Compressible - Popliteal vein: Compressible - Posterior tibial vein: Waveforms present - Other: Prominent right inguinal lymph nodes. Left: - Common femoral vein: Compressible - Deep femoral vein: Compressible - Femoral vein: Compressible - Popliteal vein: Compressible - Posterior tibial vein: Waveforms present - Other: Nothing IMPRESSION: No right or left lower extremity deep venous thrombosis. ENT: ZAID GEORGE ACCT: [id number] UNIT: [id number] : 1980 [facility] / BED: [address] [place] [address] AGE / SEX: 44 / M ADM STATUS: ADM IN SERVICE 0136 ORDERING PHYSICIAN: KARINA ECHEVARRIA RESIDENT PROCEDURE(s): RLEX - LOWER EXTREMITY NON JOINT RIGH REASON: CT right LE w/o con, R calf swelling and redness ORDER NUMBER(s): [id number], ACCESSION NUMBER(s): [id number] CLINICAL INDICATION: CT right LE w/o con, R calf swelling and redness TECHNIQUE: Noncontrast CT of the right lower extremity was performed. Sagittal and coronal reformatted images are provided. COMPARISON: None CT Dose: CTDI volume is 14.71 mGy. Dose-length product is 1864.8 mGy*cm FINDINGS: No fracture or dislocation. No evidence of cortical erosion. There subcutaneous edema in the inner thigh and at the level of the knee. No fluid collection. There is an increased number of right groin lymph nodes measuring up to 1.5 cm in short axis. Joint spaces are maintained. IMPRESSION: 1. No acute osseous abnormality. 2. Subcutaneous edema in the inner thigh and at the level of the knee which may reflect cellulitis. No fluid collection. 3. Right groin lymphadenopathy, likely reactive. All CT scans at this medical facility are performed using dose modulation techniques as appropriate to a performed exam including the following: Automated exposure control was utilized; adjustment of the MA and/or KV according to patient size; and use of iterative reconstruction technique. Condition at Discharge: Stable Final Diagnosis/Problems List Sepsis secondary Cellulitis of the Right Calf New onset Type 2 Diabetes Mellitus, HbA1c 6. Hypokalemia, 3.4 Normocytic Anemia Obesity, 32.7 kg/m2 Discharge Disposition: Eloped Discharge Instruct/Medications Scheduled Cephalexin (Keflex Capsule), 1 CAP PO QID Clindamycin Hcl (Clindamycin Hcl), 1 CAP PO TID Scheduled PRN Hydrocodone-Acetaminophen (Hydrocodone Bitartrate/AC 5-325 mg), 1 TAB PO Q6HR PRN Miscellaneous Medications Apple Cider Vinegar (Apple Cider Vinegar), 500 MG PO, (Reported) Multiple Vitamins W/ Minerals (Multi Complete), 1 OR, (Reported) Discharge Statement: "Patient was advised to return to the ER or call 911 if any headaches, dizziness, shortness of breath, chest pain, abdominal pain, bleeding, fevers, or worsening of medical condition. Patient was counseled about treatment plan, medications, possible side effects, patientverbalized understanding. All questions were answered to the best of my ability. This discharge took greater then 30 minutes in planning, reviewing documentation, counseling the patient, and discussing with other team members." ASSESSMENT ASSESSMENT Assessment MEI TALLEY RESIDENT Nov 17, 2024 09:57
[2024-11-17] MEDS: VANCOMYCIN 1GM/250ML KIT 250 ML IV SCH (10:00)
[2024-11-17 10:10] LABS: Hepatitis B Surface Antigen Negative (Negative)
[2024-11-17 10:16] LABS: Free T4 (Free Thyroxine) 1.18 ng/dL (0.89-1.76)
[2024-11-17 10:32] LABS: Hepatitis C Antibody Negative (Negative)
[2024-11-17] MEDS: CEFEPIME 1GM/50ML 50 ML IV SCH (14:00)
[2024-11-17 16:20] LABS: RAPID PLASMA REAGIN QUANT 1:4 Titer (NONREACTIVE)
[2024-11-17] MEDS: ACETAMINOPHEN 325 MG TAB PO PRN (18:00)
--- NOTE | 2024-11-17 18:50 | DVHPNRES ---
Progress Note Date Seen: Nov 17, 2024 Resident Creating Document: MEI TALLEY RESIDENT Medical Necessity Reason Pt with a Central, PICC or Fol: No Subjective Review of Systems Mr. Savage is 44-year-old male with prior medical history of vertigo, who presents today with chief complaint of left lower extremity pain. The patient states that today he had onset of throbbing pain in left calf, non-radiating, 9/10 intensity, associated with redness, swelling, hot to the touch, and lymphadenopathy in left groin. Additionally refers febrile sensation, chills, 5 emetic episodes, and diarrhea. He denies chest pain, palpitations, suppuration from left calf, and other symptoms. Due to presents to the symptoms the patient came to the emergency department seeking medical attention. On evaluation in the ED, in mild distress, febrile, and tachycardic. Initial labs show leukocytosis with neutrophilia, normocytic anemia, hypokalemia, lactic acid 2.4, and CRP 12.49. The patient was started on sepsis protocol with IV fluids and IV antibiotics. He was admitted for further workup and monitoring. Past medical history: Vertigo Surgical: Denies Allergies: Seasonal Social: Denies prior drug, alcohol, and tobacco use. States he lives alone and feels safe. The patient was seen and examined at bedside. Overnight events were reviewed. No new complaints reported except throbbing pain in the left calf. Objective vital signs Vital Sign Date Time Temp Pulse Resp B/P (MAP) Pulse Ox O2 Delivery O2 Flow Rate FiO2 11/17/24 17:36 98 18 150/98 (115) 97 11/17/24 03:20 99.3 11/17/24 01:47 Room Air* 0 21 Total Intake and Output 11/16/24 11/16/24 11/17/24 15:00 23:00 07:00 Intake Total 2550 ml Balance 2550 ml medications Current Medications Medications Dose Ordered Sig/Francisco Route Start Time Stop Time Status Last Admin Dose Admin Vancomycin HCl 0 ml @ 0 mls/hr UD IV 11/17/24 01:45 Enoxaparin Sodium 40 mg DAILY SC 11/17/24 10:00 Acetaminophen 650 mg Q6HP PRN PO 11/17/24 02:45 11/17/24 18:00 650 MG Ketorolac Tromethamine 15 mg Q6HPRN PRN IV 11/17/24 02:45 11/22/24 02:44 Diagnostic Test (Pha) 1 strip IQ4HR 11/17/24 08:00 11/17/24 16:00 1 STRIP Insulin Human Regular IQ4HR SC 11/17/24 08:00 Dextrose 50 ml UD PRN IV 11/17/24 05:00 Sodium Chloride 1,000 ml @ 125 mls/hr Q8H IV 11/17/24 08:30 Vancomycin HCl 250 ml @ 250 mls/hr Q8H IV 11/17/24 10:00 11/17/24 18:00 250 MLS/HR Cefepime HCl 50 ml @ 12.5 mls/hr Q8HR IV 11/17/24 14:00 11/17/24 14:00 12.5 MLS/HR Examination General: The patient alert and oriented in person place and time. Patient following commands HEENT: Normocephalic, atraumatic, normal reactive pupils, EOM intact, pink conjunctiva, pink dry mucous membrane Respiratory/pulmonary: Bilateral chest expansion, no pain on palpation of chest wall, clear lungs bilaterally, vesicular murmurs present in almost all lung kothari, no associated crackles or wheezes. Cardiovascular: Tachycardic, normal S1 and S2, no murmurs Abdomen: Obese, Abdomen nondistended, normal bowel sounds, soft, there is no pain to palpation in any of the abdominal quadrants, no palpable masses. Extremities: No deformities, left calf is erythematous without distinct borders, swollen compared to right calf, hot to the touch, painful to palpation, without presence of open wounds, no suppuration is observed, examination of rest of left extremity and right lower extremity without alterations, peripheral pulses present. Skin: As described above, there is no sacral edema present at this time. Neurological: Intact cranial nerves with no focal neurologic deficits laboratory and microbiology Laboratory Tests 11/17/24 04:02 Test 11/17/24 04:02 Range/Units Serum Glucose 83 74-106 mg/dL Labs and/or images reviewed: Labs reviewed by me, Image(s) reviewed by me Problem List/Assessment/Plan Problem List/Assessment/Plan Sepsis secondary Cellulitis of the Right Calf - Right lower extremity noncontrast CT: Subcutaneous edema in the inner thigh and at the level of the knee which may reflect cellulitis, no fluid collection, right groin lymphadenopathy, likely reactive. - NS 2450 cc IV (30 cc/kg ) once - NS maintenance 100 cc/hr - Zosyn IV q 8 hours discontinued - Vancomycin IV per pharmacy protocol - Acetaminophen 625 mg PO q 6 hours PRN -cefepime IV started - Toradol 15 mg IV q 6 hours PRN - Blood cultures have been ordered - Ordered STI panel New onset Type 2 Diabetes Mellitus, HbA1c 6.6 - Mild SSI - Accu-cheks - Consistent Carbohydrate Diet R/o DVT - Bilateral lower extremity venous duplex Hypokalemia, 3.4 - Potassium 50 mEq p.o. once Normocytic Anemia - monitor H&H Vitamin-D deficiency Repleting Subclinical hyperthyroidism/euthyroid sick syndrome TSH low and free T4 normal Repeat thyroid function tests after the acute illness resolved Obesity, 32.7 kg/m2 - I have counseled the patient on healthy lifestyle modifications Diet: Consistent Carbohydrate Diet DVT prophylaxis: Enoxaparin 40 mg SC daily GI prophylaxis: Not indicated Plan discussed with: Patient, Other (RN) Sepsis reassessment post fluid Is the fluid challenge complet: Yes Date of Reassessment: Nov 17, 2024 Time of Reassessment: 312 Blood Culture Time: 146 Time Antibiotics Given: 0213 Systolic BP: 132 Diastolic BP: 77 Blood Pressure Mean: 95 Respiration: 19 Respiratory Effort: Non-Labored Respiratory Pattern: Regular Oxygen Saturation: 99 Pulse Rate: 90 Pulse Location: Radial Pulse Strength: Normal Pulse Assessment Method: Palpation Pulse Rhythm: Regular Capillary Refill: < 3 seconds Heart Sounds: S1 & S2 Breath sounds: Clear Skin Moisture: Dry Skin Tugor: WNL Skin Color: WNL Date of Service: Nov 17, 2024 Billing Provider: JENN MONTERROSO MD Common Visit Codes: [id number] INP/OBS CARE(HIGH) MEI TALLEY RESIDENT Nov 17, 2024 18:50 JENN MONTERROSO MD Nov 17, 2024 22:36
[2024-11-17] MEDS: ERGOCALCIFEROL 50,000 UNIT(1.25MG) CAP PO SCH (21:07)
[2024-11-17 22:05] VITALS: BP 155/96; PULSE 95; RESP 20; TEMP 98.3; O2SAT 99
[2024-11-17 22:36] VITALS: BP 138/88; PULSE 105; PULSE 95; RESP 19; TEMP 99.7; O2SAT 99
[2024-11-17] MEDS: KETOROLAC TROMETH 30 MG/ML 1ML VIAL IV PRN (23:34)
[2024-11-18] VITALS (7 sets, daily range): BP systolic 138–161; BP diastolic 70–107; PULSE 94–105; RESP 16–19; TEMP 97.9–100.1; O2SAT 94–98
[2024-11-18 00:50] LABS: Hematocrit 37.2 % (41.0-53.0); Hemoglobin 12.4 g/dL (13.5-17.5); Mean Corpuscular Hemoglobin 27.7 pg (28.0-32.0); Mean Corpuscular Volume 83.2 fL (80.0-100.0); Nucleated Red Blood Cells % 0.0 %
[2024-11-18 01:07] LABS: Anion Gap 11 (5-15); Carbon Dioxide 24 mmol/L (20-31); Chloride 103 mmol/L (98-107); Sodium 138 mmol/L (136-145)
[2024-11-18 01:08] LABS: Calcium 9.1 mg/dL (8.7-10.4)
[2024-11-18 01:10] LABS: Potassium 3.5 mmol/L (3.5-5.1)
[2024-11-18 01:13] LABS: BUN/Creatinine Ratio 8.1 (10.0-20.0); Blood Urea Nitrogen 8 mg/dL (9-23); Glucose 86 mg/dL (74-106)
[2024-11-18] MEDS: InsuLIN REG 1unit/0.01ml Soln (100units/ml) SC SCH (11:30)
[2024-11-18] MEDS: ACCU-CHEK COMFORT CURVE STRIP VI SCH (11:30)
[2024-11-18 15:07] LABS: Chlamydia Trachomatis, NAA Negative (Negative); Neisseria gonorrhoeae, NAA Negative (Negative)
--- NOTE | 2024-11-18 18:49 | MEDREC ---
[facility] ASP Intervention Section I [facility] ASP Intervention: Review courses of therapy (TREPONOMA PALLIDUM AB POSITIVE AND RPR POSITIVE BICILLIN L-A STILL BACKORDER PLEASE CONSIDER DOXYCYCLINE 100 MG PO BID FOR 14 DAYS ) BHARATI LEYVA PHARMACIST Nov 18, 2024 18:49
--- NOTE | 2024-11-18 19:10 | DVHPNRES ---
Progress Note Date Seen: Nov 18, 2024 Resident Creating Document: MEI TALLEY RESIDENT Medical Necessity Reason Pt with a Central, PICC or Fol: No Subjective Review of Systems Mr. Savage is 44-year-old male with prior medical history of vertigo, who presents today with chief complaint of left lower extremity pain. The patient states that today he had onset of throbbing pain in left calf, non-radiating, 9/10 intensity, associated with redness, swelling, hot to the touch, and lymphadenopathy in left groin. Additionally refers febrile sensation, chills, 5 emetic episodes, and diarrhea. He denies chest pain, palpitations, suppuration from left calf, and other symptoms. Due to presents to the symptoms the patient came to the emergency department seeking medical attention. On evaluation in the ED, in mild distress, febrile, and tachycardic. Initial labs show leukocytosis with neutrophilia, normocytic anemia, hypokalemia, lactic acid 2.4, and CRP 12.49. The patient was started on sepsis protocol with IV fluids and IV antibiotics. He was admitted for further workup and monitoring. Past medical history: Vertigo Surgical: Denies Allergies: Seasonal Social: Denies prior drug, alcohol, and tobacco use. States he lives alone and feels safe. The patient was seen and examined at bedside. Overnight events were reviewed. He reports having pain in the right lower extremity, however improved from admission. He denies any other complaints. Objective vital signs Vital Sign Date Time Temp Pulse Resp B/P (MAP) Pulse Ox O2 Delivery O2 Flow Rate FiO2 11/18/24 17:00 98.9 96 19 143/107 (119) 97 98.9 11/18/24 08:00 Room Air* 0 21 Total Intake and Output 11/17/24 11/17/24 11/18/24 15:00 23:00 07:00 Intake Total 50 ml 650 ml Balance 50 ml 650 ml medications Current Medications Medications Dose Ordered Sig/Francisco Route Start Time Stop Time Status Last Admin Dose Admin Vancomycin HCl 0 ml @ 0 mls/hr UD IV 11/17/24 01:45 Enoxaparin Sodium 40 mg DAILY SC 11/17/24 10:00 11/18/24 09:12 40 MG Acetaminophen 650 mg Q6HP PRN PO 11/17/24 02:45 11/18/24 11:31 650 MG Ketorolac Tromethamine 15 mg Q6HPRN PRN IV 11/17/24 02:45 11/22/24 02:44 11/17/24 23:34 15 MG Dextrose 50 ml UD PRN IV 11/17/24 05:00 Sodium Chloride 1,000 ml @ 125 mls/hr Q8H IV 11/17/24 08:30 11/18/24 09:12 125 MLS/HR Vancomycin HCl 250 ml @ 250 mls/hr Q8H IV 11/17/24 10:00 11/18/24 17:30 250 MLS/HR Cefepime HCl 50 ml @ 12.5 mls/hr Q8HR IV 11/17/24 14:00 11/18/24 14:52 12.5 MLS/HR Ergocalciferol 50,000 unit Q7D PO 11/17/24 20:30 11/17/24 21:07 50,000 UNIT Diagnostic Test (Pha) 1 strip ACHS 11/18/24 11:30 11/18/24 17:30 1 STRIP Insulin Human Regular ACHS SC 11/18/24 11:30 Examination Pt is lying on bed General Appearance: Alert, Oriented X3, Cooperative, Mild distress HEENT: Atraumatic, Mucous membranes moist/pink, light reflex preserved Respiratory: Clear to auscultation, Normal air movement, No added sounds Cardiovascular: Regular rate, Normal S1, Normal S2, No murmurs Abdominal/ : Active bowel sounds, Soft, no distention, no tenderness Extremities: No edema, Normal pulses, No tenderness/swelling, no maculopapular rashes in the palm Skin: No Significant rash, except past surgical scars Genitourinary: No chancre or rash over the genitals Neuro: Normal speech, sensorimotor deficits none Psych/Mental Status: Mental status NL, Mood NL Nurse was there as patient ombudsperson during examination laboratory and microbiology Laboratory Tests 11/18/24 00:30 Test 11/18/24 00:30 Range/Units Serum Glucose 86 74-106 mg/dL Microbiology Date/Time Source Procedure Growth Status 11/17/24 01:49 Blood Blood Culture - Preliminary NO GROWTH AFTER 24 HOURS OF INCUBATION. Resulted Labs and/or images reviewed: Labs reviewed by me, Image(s) reviewed by me Problem List/Assessment/Plan Problem List/Assessment/Plan Sepsis secondary Cellulitis of the Right Calf - Right lower extremity noncontrast CT: Subcutaneous edema in the inner thigh and at the level of the knee which may reflect cellulitis, no fluid collection, right groin lymphadenopathy, likely reactive. - NS 2450 cc IV (30 cc/kg ) once - NS maintenance 100 cc/hr - Zosyn IV q 8 hours discontinued - Vancomycin IV per pharmacy protocol - Acetaminophen 625 mg PO q 6 hours PRN -cefepime IV started - Toradol 15 mg IV q 6 hours PRN - Blood cultures have been ordered - STI panel RPR: 1:4, syphilis serology positive. -all other STI serology negative. New onset Type 2 Diabetes Mellitus, HbA1c 6.6 - Mild SSI - Accu-cheks - Consistent Carbohydrate Diet R/o DVT - Bilateral lower extremity venous duplex Hypokalemia, 3.4 - Potassium 50 mEq p.o. once Normocytic Anemia - monitor H&H Vitamin-D deficiency Repleting Subclinical hyperthyroidism/euthyroid sick syndrome TSH low and free T4 normal Repeat thyroid function tests after the acute illness resolved Obesity, 32.7 kg/m2 - I have counseled the patient on healthy lifestyle modifications Diet: Consistent Carbohydrate Diet DVT prophylaxis: Enoxaparin 40 mg SC daily GI prophylaxis: Not indicated Plan discussed with: Patient, Other (RN) My Orders My Orders Orders - MEI TALLEY RESIDENT Procedure Category Date Status Time Ergocalciferol PHA 11/17/24 In Process (Vitamin D 50,000 20:30 Glucose Blood PHA 11/18/24 In Process (Accu-Chek Comfort 11:30 Insulin R (Human) PHA 11/18/24 In Process (Insulin R) 11:30 Sepsis reassessment post fluid Is the fluid challenge complet: Yes Date of Reassessment: Nov 17, 2024 Time of Reassessment: 312 Blood Culture Time: 014 Time Antibiotics Given: 0213 Systolic BP: 132 Diastolic BP: 77 Blood Pressure Mean: 95 Respiration: 19 Respiratory Effort: Non-Labored Respiratory Pattern: Regular Oxygen Saturation: 99 Pulse Rate: 90 Pulse Location: Radial Pulse Strength: Normal Pulse Assessment Method: Palpation Pulse Rhythm: Regular Capillary Refill: < 3 seconds Heart Sounds: S1 & S2 Breath sounds: Clear Skin Moisture: Dry Skin Tugor: WNL Skin Color: WNL Date of Service: Nov 18, 2024 Billing Provider: JENN MONTERROSO MD Common Visit Codes: [id number] INP/OBS CARE(HIGH) MEI TALLEY Nov 18, 2024 19:09 JENN MONTERROSO MD Nov 20, 2024 10:23
[2024-11-19 00:36] VITALS: BP 142/90; PULSE 89; RESP 18; TEMP 98.2; O2SAT 97
[2024-11-19 04:36] VITALS: BP 142/99; PULSE 91; RESP 16; TEMP 98.5; O2SAT 97
[2024-11-19 06:58] LABS: Hematocrit 35.4 % (41.0-53.0); Hemoglobin 11.9 g/dL (13.5-17.5); Mean Corpuscular Hemoglobin 28.3 pg (28.0-32.0); Mean Corpuscular Volume 83.9 fL (80.0-100.0); Nucleated Red Blood Cells % 0.0 %
[2024-11-19 07:08] LABS: Anion Gap 10 (5-15); Carbon Dioxide 23 mmol/L (20-31); Chloride 105 mmol/L (98-107); Potassium 3.7 mmol/L (3.5-5.1); Sodium 138 mmol/L (136-145)
[2024-11-19 07:10] LABS: Calcium 9.0 mg/dL (8.7-10.4)
[2024-11-19 07:14] LABS: BUN/Creatinine Ratio 8.2 (10.0-20.0); Glucose 89 mg/dL (74-106)
[2024-11-19 07:17] LABS: Blood Urea Nitrogen 8 mg/dL (9-23)
[2024-11-19 08:00] VITALS: PULSE 80
[2024-11-19 09:20] LABS: Alanine Aminotransferase 44 U/L (7-40); Albumin 4.1 g/dL (3.2-4.8); Alkaline Phosphatase 42 U/L (46-116); Anion Gap 9 (5-15); BUN/Creatinine Ratio 9.3 (10.0-20.0); Bilirubin, Total 0.6 mg/dL (0.2-1.0); Blood Urea Nitrogen 10 mg/dL (9-23); Calcium 8.7 mg/dL (8.7-10.4); Carbon Dioxide 26 mmol/L (20-31); Chloride 104 mmol/L (98-107); Glucose 93 mg/dL (74-106); Potassium 3.8 mmol/L (3.5-5.1); Sodium 139 mmol/L (136-145); Total Protein 7.1 g/dL (5.7-8.2)
[2024-11-19 09:23] VITALS: BP 143/98; PULSE 90; RESP 20; TEMP 98.2; O2SAT 96
[2024-11-19] MEDS ORDERED: CEPH250C PO (11:37)
[2024-11-19 12:44] VITALS: BP 136/94; PULSE 81; RESP 20; TEMP 98.1; O2SAT 98
--- NOTE | 2024-11-19 16:27 | DVHDSRES ---
Discharge Summary Date of Admission Resident Creating Document: MEI TALLEY Nov 17, 2024 at 02:36 Date of Discharge: Nov 19, 2024 Admitting Diagnosis Right lower extremity cellulitis Labs/Diagnostic Data: Laboratory Results Test 11/19/24 11:29 11/19/24 08:25 11/19/24 05:35 11/18/24 00:30 POC Glucose 146 mg/dl (70-106) Sodium Level 139 mmol/L (136-145) Potassium Level 3.8 mmol/L (3.5-5.1) Chloride Level 104 mmol/L (98-107) Carbon Dioxide Level 26 mmol/L (20-31) Anion Gap 9 (5-15) Blood Urea Nitrogen 10 mg/dL (9-23) Creatinine 1.07 mg/dL (0.700-1.30) Glomerular Filtration Rate Calc 88 mL/min (>90) BUN/Creatinine Ratio 9.3 (10.0-20.0) Serum Glucose 93 mg/dL (74-106) Calcium Level 8.7 mg/dL (8.7-10.4) Total Bilirubin 0.6 mg/dL (0.2-1.0) Aspartate Amino Transferase (AST) 37 U/L (13-40) Alanine Aminotransferase (ALT) 44 U/L (7-40) Alkaline Phosphatase 42 U/L (46-116) Total Protein 7.1 g/dL (5.7-8.2) Albumin 4.1 g/dL (3.2-4.8) White Blood Count 8.3 10^3/uL (4.4-10.8) Red Blood Count 4.22 10^6/uL (4.5-5.90) Hemoglobin 11.9 g/dL (13.5-17.5) Hematocrit 35.4 % (41.0-53.0) Mean Corpuscular Volume 83.9 fL (80.0-100.0) Mean Corpuscular Hemoglobin 28.3 pg (28.0-32.0) Mean Corpuscular Hemoglobin Concent 33.7 g/dL (32.0-36.0) Red Cell Distribution Width 13.9 % (11.8-14.3) Platelet Count 155 10^3/uL (140-450) Mean Platelet Volume 8.9 fL (6.9-10.8) Neutrophils (%) (Auto) 69.2 % (37.0-80.0) Lymphocytes (%) (Auto) 18.8 % (10.0-50.0) Monocytes (%) (Auto) 10.6 % (0.0-12.0) Eosinophils (%) (Auto) 0.8 % (0.0-7.0) Basophils (%) (Auto) 0.6 % (0.0-2.0) Neutrophils # (Auto) 5.8 10 ^3/uL (1.6-8.6) Lymphocytes # (Auto) 1.6 10 ^3/uL (0.4-5.4) Monocytes # (Auto) 0.9 10 ^3/uL (0-1.3) Eosinophils # (Auto) 0.1 10 ^3/uL (0-0.8) Basophils # (Auto) 0 10 ^3/uL (0-0.2) Nucleated Red Blood Cells 0.0 % Vancomycin Level Trough 14.0 ug/mL (5-10) Test 11/17/24 04:02 11/17/24 03:47 11/17/24 01:47 Lactic Acid Level 1.6 mmol/L (0.4-2.0) Free Thyroxine (T4) Calculated 1.18 ng/dL (0.89-1.76) Total Triiodothyronine (TT3) 0.38 ng/mL (0.60-1.81) Rapid Plasma Reagin Titer 1:4 Titer (NONREACTIVE) Rapid Plasma Reagin Reactive (NONREACTIVE) Treponema pallidum Antibody Reactive (Negative) Hepatitis A IgM Antibody Negative Hepatitis B Surface Antigen Negative (Negative) Hepatitis B Core IgM Antibody Negative (Negative) Hepatitis C Antibody Negative (Negative) HIV (1&2) Antibody Negative (Negative) Urine Color Light-yellow (Yellow) Urine Clarity Clear (Clear) Urine pH 6.0 (5.0-9.0) Urine Specific [place] 1.009 (1.001-1.035) Urine Protein Negative (Negative) Urine Ketones Negative (Negative) Urine Blood Negative /uL (Negative) Urine Nitrite Negative (Negative) Urine Bilirubin Negative (Negative) Urine Urobilinogen Normal mg/dL (Negative) Urine Leukocyte Esterase 2+ /uL (Negative) Urine RBC None seen /hpf (0 - 3) Urine Microscopic WBC 33 /HPF (0-3) Urine Squamous Epithelial Cells Few /hpf (<5) Urine Bacteria None seen /hpf (None Seen) Urine Glucose Normal mg/dL (Normal) Urine Opiates Screen Neg (NEGATIVE) Urine Fentanyl Screen Neg (NEGATIVE) Urine Barbiturates Screen Neg (NEGATIVE) Urine Phencyclidine Screen Neg (NEGATIVE) Urine Amphetamines Screen Neg (NEGATIVE) Urine Benzodiazepines Screen Neg (NEGATIVE) Urine Cocaine Screen Neg (NEGATIVE) Urine Cannabinoids Screen Neg (NEGATIVE) Chlamydia trachomatis (SUNG) Negative (Negative) Neisseria gonorrhoeae (SUNG) Negative (Negative) Hemoglobin A1c 6.6 % A1C (<5.7) Phosphorus Level 3.2 mg/dL (2.4-5.1) C-Reactive Protein High Sensitivity 12.49 mg/dL (<1.0) Vitamin B12 Level 266 pg/mL (211-911) Vitamin D 25-Hydroxy 23.6 ng/mL (30.0-100) Thyroid Stimulating Hormone (TSH) 0.30 uIU/mL (0.55-4.78) Other Laboratory Tests 11/19/24 08:25 11/19/24 05:35 Brief Hx & Hospital Course: Mr. George is 44-year-old male with prior medical history of vertigo, who presents today with chief complaint of left lower extremity pain. The patient states that today he had onset of throbbing pain in left calf, non-radiating, 9/10 intensity, associated with redness, swelling, hot to the touch, and lymphadenopathy in left groin. Additionally refers febrile sensation, chills, 5 emetic episodes, and diarrhea. He denies chest pain, palpitations, suppuration from left calf, and other symptoms. Due to presents to the symptoms the patient came to the emergency department seeking medical attention. On evaluation in the ED, in mild distress, febrile, and tachycardic. Initial labs show leukocytosis with neutrophilia, normocytic anemia, hypokalemia, lactic acid 2.4, and CRP 12.49. The patient was started on sepsis protocol with IV fluids and IV antibiotics. He was admitted for further workup and monitoring. Past medical history: Vertigo Surgical: Denies Allergies: Seasonal Social: Denies prior drug, alcohol, and tobacco use. States he lives alone and feels safe. Further evaluation the patient was diagnosed with sepsis secondary to cellulitis of the right calf. DVT was ruled out by bilateral lower extremity ultrasound. A Lower extremity noncontrast CT revealed cellulitis with no fluid collection and right groin reactive lymphadenopathy . He was treated with Toradol, vancomycin and cefepime. Blood culture was negative. He was diagnosed with new onset type 2 diabetes mellitus with HbA1c 6.6. His diabetes mellitus was managed with mild sliding scale insulin and was placed on consistent carbohydrate diet. The patient's RPR titer was 1:4, however, as the patient has no symptoms or signs (light reflex preserved no maculopapular rashes in the palm, no chancre or rashes over the genitals, no tenderness swelling, no neurological deficits) and no indication for treatment until titer is 1:16, the patient was discharged with advice to follow up. On the day of discharge, the patient was hemodynamically stable, verbalized understanding of the treatment and discharge plan. The patient was thoroughly explained out syphilis and all other STI was ordered, which came back negative. All the pending results will be discussed with patient at [facility] and patient will follow up with PCP. Examination Pt is lying on bed General Appearance: Alert, Oriented X3, Cooperative, Mild distress HEENT: Atraumatic, Mucous membranes moist/pink, light reflex preserved Respiratory: Clear to auscultation, Normal air movement, No added sounds Cardiovascular: Regular rate, Normal S1, Normal S2, No murmurs Abdominal/ : Active bowel sounds, Soft, no distention, no tenderness Extremities: No edema, Normal pulses, No tenderness/swelling, no maculopapular rashes in the palm Skin: No Significant rash, except past surgical scars Genitourinary: No chancre or rash over the genitals Neuro: Normal speech, sensorimotor deficits none Psych/Mental Status: Mental status NL, Mood NL Nurse was there as barrel scraper during examination Consults/Reason for consult PATIENT: ZAID GEORGE ACCT: [id number] UNIT: [id number] : 1980 [facility]GE / SEX: 44 / M ADM STATUS: ADM IN SERVICE 0136 ORDERING PHYSICIAN: KARINA ECHEVARRIA RESIDENT PROCEDURE(s): RLEX - LOWER EXTREMITY NON JOINT RIGH REASON: CT right LE w/o con, R calf swelling and redness ORDER NUMBER(s): [id number], ACCESSION NUMBER(s): [id number] CLINICAL INDICATION: CT right LE w/o con, R calf swelling and redness TECHNIQUE: Noncontrast CT of the right lower extremity was performed. Sagittal and coronal reformatted images are provided. COMPARISON: None CT Dose: CTDI volume is 14.71 mGy. Dose-length product is 1864.8 mGy*cm FINDINGS: No fracture or dislocation. No evidence of cortical erosion. There subcutaneous edema in the inner thigh and at the level of the knee. No fluid collection. There is an increased number of right groin lymph nodes measuring up to 1.5 cm in short axis. Joint spaces are maintained. IMPRESSION: 1. No acute osseous abnormality. 2. Subcutaneous edema in the inner thigh and at the level of the knee which may reflect cellulitis. No fluid collection. 3. Right groin lymphadenopathy, likely reactive. All CT scans at this medical facility are performed using dose modulation techniques as appropriate to a performed exam including the following: Automated exposure control was utilized; adjustment of the MA and/or KV according to patient size; and use of iterative reconstruction technique. PATIENT: ZAID GEORGE ACCT: [id number] UNIT: [id number] : 1980 [facility]GE [facility] SEX: 44 / M ADM STATUS: ADM IN SERVICE 0236 ORDERING PHYSICIAN: DARELL MÉNDEZ RESIDENT PROCEDURE(s): BLDVT - BiLat Lower DVT REASON: R/o DVT ORDER NUMBER(s): [id number], ACCESSION NUMBER(s): [id number] US BiLat Lower DVT HISTORY: R/o DVT COMPARISON: CT LOWER EXTREMITY NON JOINT RIGH on DOS: 11/17/24, US BILAT LOWER DVT on DOS: 01/21/23 TECHNIQUE: Duplex doppler evaluation of the deep venous system of the lower extremity from the common femoral veins, superficial femoral vein, great saphenous vein, deep femoral vein, popliteal vein, and calf veins, including color doppler and spectral/pulsed waveform analysis, was performed. FINDINGS: Right: - Common femoral vein: Compressible - Deep femoral vein: Compressible - Femoral vein: Compressible - Popliteal vein: Compressible - Posterior tibial vein: Waveforms present - Other: Prominent right inguinal lymph nodes. Left: - Common femoral vein: Compressible - Deep femoral vein: Compressible - Femoral vein: Compressible - Popliteal vein: Compressible - Posterior tibial vein: Waveforms present - Other: Nothing IMPRESSION: No right or left lower extremity deep venous thrombosis. Operations or Procedures PATIENT: ZAID GEORGE ACCT: [id number] UNIT: [id number] : 1980 LOC: OVERFLOW ROOM / [facility]ED: [facility] / A AGE / SEX: 44 / M ADM STATUS: ADM IN SERVICE 0236 ORDERING PHYSICIAN: DARELL MÉNDEZ PROCEDURE(s): BLDVT - BiLat Lower DVT REASON: R/o DVT ORDER NUMBER(s): [id number], ACCESSION NUMBER(s): [id number] US BiLat Lower DVT HISTORY: R/o DVT COMPARISON: CT LOWER EXTREMITY NON JOINT RIGH on DOS: 11/17/24, US BILAT LOWER DVT on DOS: 01/21/23 TECHNIQUE: Duplex doppler evaluation of the deep venous system of the lower extremity from the common femoral veins, superficial femoral vein, great saphenous vein, deep femoral vein, popliteal vein, and calf veins, including color doppler and spectral/pulsed waveform analysis, was performed. FINDINGS: Right: - Common femoral vein: Compressible - Deep femoral vein: Compressible - Femoral vein: Compressible - Popliteal vein: Compressible - Posterior tibial vein: Waveforms present - Other: Prominent right inguinal lymph nodes. Left: - Common femoral vein: Compressible - Deep femoral vein: Compressible - Femoral vein: Compressible - Popliteal vein: Compressible - Posterior tibial vein: Waveforms present - Other: Nothing IMPRESSION: No right or left lower extremity deep venous thrombosis. ENT: ZAID GEORGE ACCT: [id number] UNIT: [id number] : 1980 LOC: OVERFLOW ROOM / BED: [facility] / A AGE / SEX: 44 / M ADM STATUS: ADM IN SERVICE 0136 ORDERING PHYSICIAN: KARINA ECHEVARRIA RESIDENT PROCEDURE(s): RLEX - LOWER EXTREMITY NON JOINT RIGH REASON: CT right LE w/o con, R calf swelling and redness ORDER NUMBER(s): [id number], ACCESSION NUMBER(s): [id number] CLINICAL INDICATION: CT right LE w/o con, R calf swelling and redness TECHNIQUE: Noncontrast CT of the right lower extremity was performed. Sagittal and coronal reformatted images are provided. COMPARISON: None CT Dose: CTDI volume is 14.71 mGy. Dose-length product is 1864.8 mGy*cm FINDINGS: No fracture or dislocation. No evidence of cortical erosion. There subcutaneous edema in the inner thigh and at the level of the knee. No fluid collection. There is an increased number of right groin lymph nodes measuring up to 1.5 cm in short axis. Joint spaces are maintained. IMPRESSION: 1. No acute osseous abnormality. 2. Subcutaneous edema in the inner thigh and at the level of the knee which may reflect cellulitis. No fluid collection. 3. Right groin lymphadenopathy, likely reactive. All CT scans at this medical facility are performed using dose modulation techniques as appropriate to a performed exam including the following: Automated exposure control was utilized; adjustment of the MA and/or KV according to patient size; and use of iterative reconstruction technique. Condition at Discharge: Stable Final Diagnosis/Problems List Sepsis secondary Cellulitis of the Right Calf New onset Type 2 Diabetes Mellitus, HbA1c 6.6 Ruled out DVT Hypokalemia, 3.4 Normocytic Anemia Vitamin-D deficiency Subclinical hyperthyroidism/euthyroid sick syndrome Obesity, 32.7 kg/m2 Discharge Disposition: Home Discharge Instruct/Medications Diet: Consistent carbohydrate Activity: No Restrictions, As Tolerated Follow Up/Referral: follow up with PCP and DC clinic in 1 week. Medications: as per EMR Scheduled Cephalexin (Keflex Capsule), 500 MG PO QID Scheduled PRN Hydrocodone-Acetaminophen (Hydrocodone Bitartrate/AC 5-325 mg), 1 TAB PO Q6HR PRN Miscellaneous Medications Multiple Vitamins W/ Minerals (Multi Complete), 1 OR, (Reported) Discontinued Medications Apple Cider Vinegar (Apple Cider Vinegar), 500 MG PO, (Reported) Cephalexin (Keflex Capsule), 1 CAP PO QID Clindamycin Hcl (Clindamycin Hcl), 1 CAP PO TID Discharge Statement: "Patient was advised to return to the ER or call 911 if any headaches, dizziness, shortness of breath, chest pain, abdominal pain, bleeding, fevers, or worsening of medical condition. Patient was counseled about treatment plan, medications, possible side effects, patientverbalized understanding. All questions were answered to the best of my ability. This discharge took greater then 30 minutes in planning, reviewing documentation, counseling the patient, and discussing with other team members." ASSESSMENT ASSESSMENT Assessment Sepsis secondary Cellulitis of the Right Calf New onset Type 2 Diabetes Mellitus, HbA1c 6. Hypokalemia, 3.4 Normocytic Anemia Obesity, 32.7 kg/m2 Date of Service: Nov 19, 2024 Billing Provider: JENN MONTERROSO MD Common Visit Codes: 23523-DCP/OBS DISCH DAY >30min MAYANK,MEI HASTINGS Nov 19, 2024 16:27 JENN MONTERROSO MD Nov 20, 2024 10:25
== END 2024-11-19 13:05 | disposition home or self-care (01) | DRG 720 ==
LOC: ER 00:50 → OVERFLOW 02:36 → WEST WING 22:09
PROVIDERS: ADMIT Internal Medicine; ATTEND Internal Medicine
DX: A41.9 Sepsis, unspecified organism (principal); L03.115 Cellulitis of right lower limb; D64.9 Anemia, unspecified; E05.90 Thyrotoxicosis, unspecified without thyrotoxic crisis or storm; E11.9 Type 2 diabetes mellitus without complications; E55.9 Vitamin D deficiency, unspecified; E66.9 Obesity, unspecified; E87.6 Hypokalemia; E07.81 Sick-euthyroid syndrome; Z68.32 Body mass index [BMI] 32.0-32.9, adult
CPT/HCPCS: 36415; 73700; 80048; 80053; 80074; 80202; 80307; 81001; 82306; 82607; 82962; 83036; 83605; 84100; 84439; 84443; 84480; 85025; 86141; 86592; 86593; 86703; 86780; 87040; 93970; G0378; J1815; J1885; J2543

== ENCOUNTER 2024-11-25 11:33 | Inpatient (IN) | payer MEDICAID ==
[~2024-11-25] VITALS: Ht 190.5 cm; Wt 111.4 kg
[~2024-11-25 11:33] MED LIST changes: -APPLTAB PO; -CLIN1CAP70 PO
--- NOTE | 2024-11-25 12:40 | ED.PDOC ---
History of Present Illness HPI Comments Mr. Savage is a 44 year old male with no PMHx, who is brought today from the discharge clinic due to swelling of his right calf. The patient was recently discharged from this institution where he was admitted for cellulitis. He was discharged on Keflex 500 mg p.o. b.i.d. He states that since discharge he has i ncreased swelling, redness, and pain of his red calf. He describes this pain as sharp/burning, 10/10 intensity, aggravated by dangling his foot or trying to bear weight on his right leg, slightly relieved by elevating his leg. Additionally refers appearance of a bulla on the in surface of the right ankle. He denies fever, nausea, vomiting, malaise, or suppuration. Due to worsening of symptoms, he was sent for evaluation in the ED. Chief Complaint: Extremity Swelling Time Seen by MD: 11:48 Allergies: Coded Allergies: NO KNOWN ALLERGIES (Unverified , 01/21/23) Home Meds Active Scripts Cephalexin (KEFLEX CAPSULE) 250 Mg Cp, 500 MG PO QID for 7 Days, #56 CAP 0 Refills Prov:JORDIN MCKEON RESIDENT 11/19/24 Hydrocodone-Acetaminophen (Hydrocodone Bitartrate/AC 5-325 mg) 1 Tab Tab, 1 TAB PO Q6HR PRN, #30 TAB Prov:MALINI MEEK MD 01/23/23 Reported Medications Multiple Vitamins W/ Minerals (MULTI COMPLETE) Complete Cap, 1 OR, CAP 01/22/23 Discontinued Reported Medications Apple Cider Vinegar (Apple Cider Vinegar) 500 Mg Tab, 500 MG PO, TAB 01/22/23 Discontinued Scripts Clindamycin Hcl (Clindamycin Hcl) 300 Mg Cap, 1 CAP PO TID, #30 CAP Prov:MALINI MEEK MD 01/23/23 Cephalexin (KEFLEX CAPSULE) 250 Mg Cp, 1 CAP PO QID, #40 CAP Prov:MALINI MEEK MD 01/23/23 Information Source: Patient Mode of Arrival: Wheelchair Severity: Moderate Timing: Days Duration: Since onset Past Medical History PAST MEDICAL HISTORY: Denies Surgical History: Denies all surgeries Family History Family History: Family hx of DM Social History Smoker: Non-Smoker Alcohol: Denies ETOH Use Drugs: Denies Drug Use Lives In: Home Constitutional: denies: chills, diaphoresis, fatigue, fever, malaise, sweats, weakness, others EENTM: denies: blurred vision, double vision, ear bleeding, ear discharge, ear drainage, ear pain, ear ringing, eye pain, eye redness, hearing loss, mouth pain, mouth swelling, nasal discharge, nose bleeding, nose congestion, nose pain, photophobia, tearing, throat pain, throat swelling, voice changes, others Respiratory: denies: cough, hemoptysis, orthopnea, SOB at rest, shortness of breath, SOB with excertion, stridor, wheezing, others Cardiovascular: denies: chest pain, dizzy spells, diaphoresis, Dyspnea on exertion, edema, irregular heart beat, left arm pain, lightheadedness, palpitations, PND, syncope, others Gastrointestinal: denies: abdomen distended, abdominal pain, blood streaked bowels, constipated, diarrhea, dysphagia, difficulty swallowing, hematemesis, melena, nausea, poor appetite, poor fluid intake, rectal bleeding, rectal pain, vomiting, others Genitourinary: denies: burning, dysuria, flank pain, frequency, hematuria, incontinence, penile discharge, penile sore, pain, testicle pain, testicle swelling, urgency, others Neurological: denies: dizziness, fainting, headache, left sided numbness, left sided weakness, numbness, paresthesia, pre-existing deficit, right sided numbness, right sided weakness, seizure, speech problems, tingling, tremors, weakness, others Musculoskeletal: reports: others (Swelling, redness, and pain of right calf ) Integumetry: reports: others (Redness of right calf ) Hematologic/Lymphatic: denies: anemia, blood clots, easy bleeding, easy bruising, swollen glands, others Endocrine: denies: excessive hunger, excessive sweating, excessive thirst, excessive urination, flushing, intolerance to cold, intolerance to heat, unexplained weight gain, unexplained weight loss, others Physical Exam General Appearance: Moderate Distress HEENT: Normal ENT Inspection, PERRL/EOMI, Pharynx Normal Neck: Full Range of Motion, Non-Tender, Normal Inspection Respiratory: Chest Non-Tender, Lungs Clear, No Accessory Muscle Use, No Respiratory Distress, Normal Breath Sounds Cardiovascular: No Edema, No JVD, No Murmur, No Gallop Breast Exam: Deferred Gastrointestinal: No Organomegaly, Non Tender, No Pulsatile Mass, Normal Bowel Sounds Genitalia: Deferred Pelvic: Deferred Rectal: Deferred Extremities: Calf tenderness (Redness and swelling of right calf, hot to the touch, painful on palpation ), Leg edema, Tender, Other (Presence of flaccid bullae on inner surface of right ankle ) Neurologic: No Motor Deficits, Normal Affect, Normal Mood, No Sensory Deficits Cerebellar Function: Normal Reflexes: Normal Skin: Rash (Redness of right calf, with swelling and warmth to th touch ) Lymphatic: No Adenopathy Was a procedure done? Was a procedure done?: No Differential Dx Considerations may include: Cellulitis, Osteomyelitis, abrasion, hematoma, abscess X-Ray, Labs, Meds, VS Vital Signs Date Time Temp Pulse Resp B/P (MAP) Pulse Ox O2 Delivery O2 Flow Rate FiO2 11/25/24 13:46 100.7 107 17 163/100 (121) 100 100.7 11/25/24 11:35 99.8 104 18 130/90 100 99.8 Lab Test 11/25/24 13:27 11/25/24 13:12 Range/Units White Blood Count 16.5 #H 4.4-10.8 10^3/uL Red Blood Count 4.66 4.5-5.90 10^6/uL Hemoglobin 12.9 L 13.5-17.5 g/dL Hematocrit 39.4 #L 41.0-53.0 % Mean Corpuscular Volume 84.6 80.0-100.0 fL Mean Corpuscular Hemoglobin 27.6 L 28.0-32.0 pg Mean Corpuscular Hemoglobin Concent 32.6 32.0-36.0 g/dL Red Cell Distribution Width 14.1 11.8-14.3 % Platelet Count 434 # 140-450 10^3/uL Mean Platelet Volume 7.0 6.9-10.8 fL Neutrophils (%) (Auto) 84.6 H 37.0-80.0 % Lymphocytes (%) (Auto) 9.4 L 10.0-50.0 % Monocytes (%) (Auto) 5.5 0.0-12.0 % Eosinophils (%) (Auto) 0.1 0.0-7.0 % Basophils (%) (Auto) 0.4 0.0-2.0 % Neutrophils # (Auto) 14.0 H 1.6-8.6 10 ^3/uL Lymphocytes # (Auto) 1.6 0.4-5.4 10 ^3/uL Monocytes # (Auto) 0.9 0-1.3 10 ^3/uL Eosinophils # (Auto) 0 0-0.8 10 ^3/uL Basophils # (Auto) 0.1 0-0.2 10 ^3/uL Nucleated Red Blood Cells 0.1 % Sodium Level Pending Potassium Level Pending Chloride Level Pending Carbon Dioxide Level Pending Anion Gap Pending Blood Urea Nitrogen Pending Creatinine Pending Glomerular Filtration Rate Calc Pending BUN/Creatinine Ratio Pending Serum Glucose Pending Calcium Level Pending Lactic Acid Level 1.2 0.4-2.0 mmol/L Current Medications Medications (Trade) Dose Ordered Sig/Francisco Route Start Time Stop Time Status Last Admin Ceftriaxone Sodium 50 ml @ 100 mls/hr ONCE ONCE IV 11/25/24 12:45 11/25/24 13:25 DC 11/25/24 13:31 Acetaminophen/ Hydrocodone Bitart (Advance 5/325MG Tab) 1 tab ONCE ONCE PO 11/25/24 12:45 11/25/24 13:25 DC 11/25/24 13:31 Time of 1ST Reevaluation: 13:50 Reevaluation 1ST: Unchanged Patient Education/Counseling: Diagnosis, Treatment Family Education/Counseling: No Family Present SEPSIS Sepsis Screen Date sepsis recognized/suspect: Nov 25, 2024 Time Sepsis recognized/suspect: 1134 Recent Procedure: No On Antibiotic Therapy: Yes Respiratory Rate >20: No Heart Rate >90: Yes Temp<36 C (96.8 F) or >38.3 C: No SBP <90 or MAP <65 mmHG: No New Acute Mental Status Change: No Is the patient on CPAP, BIPAP,: No Physician Orders Vancomycin Per Pharmacy (11/25/24 12:45) Blood Culture (11/25/24 12:39) Basic Metabolic Panel (11/25/24 13:13) Sodium Chloride 0.9% (11/25/24 14:15) Acetaminophen Tablet (Tylenol Tablet) (11/25/24 14:15) Vital Signs Date Time Temp Pulse Resp B/P (MAP) Pulse Ox O2 Delivery O2 Flow Rate FiO2 11/25/24 13:46 100.7 107 17 163/100 (121) 100 100.7 11/25/24 11:35 99.8 104 18 130/90 100 99.8 Laboratory Tests Test 11/25/24 13:12 11/25/24 13:27 Lactic Acid Level 1.2 mmol/L (0.4-2.0) White Blood Count 16.5 10^3/uL (4.4-10.8) #H Medications Medications Dose Ordered Sig/Francisco Route Start Time Stop Time Status Last Admin Dose Admin Acetaminophen/ Hydrocodone Bitart 1 tab ONCE ONCE PO 11/25/24 12:45 11/25/24 13:25 DC 11/25/24 13:31 Ceftriaxone Sodium 50 ml @ 100 mls/hr ONCE ONCE IV 11/25/24 12:45 11/25/24 13:25 DC 11/25/24 13:31 Departure 1 Departure Time of Disposition: 13:08 (The patient presented with right calf redness, swelling, concerning for cellulitis, abscess, abrasion.1. I ordered and reviewed at least 3 labs including a CBC, BMP, and lactic acid. After review of data, the patient is unlikely to have an abrasion or hematoma. Patient is stable at this time. For further workup and management IV antibiotics.) Impression: Primary Impression: Sepsis Additional Impression: Cellulitis Disposition: 30 STILL A PATIENT Admit to: Med Surg Condition: Stable Additional Instructions: Patient was brought from the discharge clinic due to worsening of redness, swelling, and pain in right calf He was recently discharged home with Keflex 500 mg p.o., which he is still currently taking Patient is tachycardic and febrile Labs show CBC with leukocytosis and neutrophilia, with lactic acid of 1.2 He has been started on IV ceftriaxone and vancomycin and fluids He will be admitted for further workup and management Critical Care Note Critical Care Time?: No Stability Stability form required: DARELL Garcia RESIDENT Nov 25, 2024 12:40
[2024-11-25] MEDS ORDERED: VANCOMYCIN PER PHARMACY 0 MG IV SCH ×2 (12:45→16:00)
[2024-11-25] MEDS: HYDROcodone-ACET 5/325MG TAB PO ONE (13:31)
[2024-11-25 13:54] LABS: Hematocrit 39.4 % (41.0-53.0); Hemoglobin 12.9 g/dL (13.5-17.5); Mean Corpuscular Hemoglobin 27.6 pg (28.0-32.0); Mean Corpuscular Volume 84.6 fL (80.0-100.0); Nucleated Red Blood Cells % 0.1 %
[2024-11-25 14:14] LABS: Chloride 103 mmol/L (98-107); Potassium 3.6 mmol/L (3.5-5.1); Sodium 137 mmol/L (136-145)
[2024-11-25 14:15] LABS: Anion Gap 14 (5-15)
[2024-11-25 14:16] LABS: Calcium 9.3 mg/dL (8.7-10.4)
[2024-11-25 14:19] LABS: Carbon Dioxide 20 mmol/L (20-31)
[2024-11-25 14:20] LABS: BUN/Creatinine Ratio 7.9 (10.0-20.0); Glucose 87 mg/dL (74-106)
[2024-11-25 14:21] LABS: Blood Urea Nitrogen 7 mg/dL (9-23)
[2024-11-25] MEDS: SODIUM CHLORIDE 0.9% 2,550 ML IV ONE (14:33)
[2024-11-25] MEDS: ACETAMINOPHEN 325 MG TAB PO ONE (14:38)
--- NOTE | 2024-11-25 14:39 | DVHHPRES ---
History of Present Illness Resident Creating Document: MIRNA CROFT RESIDENT History of Present Illness This is a 44-year-old male with past medical history of hypertension, type 2 diabetes mellitus was brought today from discharge clinic due to swelling of his right calf. The patient was recently admitted in [facility] for cellulitis and was discharged with Keflex 500 mg p.o. b.i.d.. The patient stated that since discharge he has increased swelling redness and pain in his right calf, which is sharp/burning pain, 10/10, aggravated by dangling or trying to bear weight on his right leg and slightly relieved by elevation of his right leg. He denies fever, chills, shortness of breath, abdominal pain, nausea, vomiting, recent trauma or any change in bowel and bladder habit. Past Medical History Hypertension, type 2 diabetes mellitus Past Surgical History Unknown Family History Nothing contributory Past Social History Lives alone Nonsmoker, nonalcoholic and never tried any drugs Review of Systems Constitutional: No: Fever, Chills, Sweats, Weakness, Malaise, Other Eyes: No: Pain, Vision change, Conjunctivae inflammation, Eyelid inflammation, Other, Redness ENT: No: Ear pain, Ear discharge, Nose pain, Nose discharge, Nose congestion, Mouth pain, Mouth swelling, Throat pain, Throat swelling, Other Respiratory: No: Cough, Dry, Shortness of breath, SOB with excertion, Wheezing, Hemoptysis, Pleuritic Pain, Sputum, Wheezing, Other Cardiovascular: No: Chest Pain, Palpitations, Orthopnea, Paroxysmal Noc. Dyspnea, Edema, Lt Headedness, Other Gastrointestinal: No: Nausea, Vomiting, Abdominal Pain, Diarrhea, Constipation, Melena, Hematochezia, Other Genitourinary: No Dysuria, No Frequency, No Incontinence, No Hematuria, No Retention, No Other Musculoskeletal: leg pain, foot pain Skin: Other Neurological: No: Weakness, Numbness, Incoordination, Change in speech, Confusion, Seizures, Other Allergies: Coded Allergies: NO KNOWN ALLERGIES (Unverified , 01/21/23) Medications Current Medications Medications Dose Ordered Sig/Francisco Route Start Time Stop Time Status Last Admin Dose Admin Vancomycin HCl 0 ml @ 0 mls/hr UD IV 11/25/24 12:45 UNV Exam Vital Signs Vital Signs Date Time Temp Pulse Resp B/P (MAP) Pulse Ox O2 Delivery O2 Flow Rate FiO2 11/25/24 13:46 100.7 107 17 163/100 (121) 100 100.7 Exam Physical examination: General Appearance: Alert, Oriented X3, Cooperative, No acute distress HEENT: Atraumatic, PERRLA, EOMI, Mucous membrane moist/pink Respiratory: Clear to auscultation, Normal air movement Cardiovascular: Regular rate, Normal S1, Normal S2, No murmurs, no chest wall tenderness Abdominal: Normal bowel sounds, Soft, No tenderness, No hepatospenomegaly, No masses Extremities: Redness and swelling in the right lower extremity from calf to ankle with few blister in the ankle, 1+ edema, No clubbing, No cyanosis, normal peripheral pulses. Skin: No rashes, No breakdown, No significant lesion Neuro: Normal speech, Strength at 5/5 X4 ext, Normal tone, Sensation intact, Cranial nerves 3-12 NL, Reflexes 2+ Psych/Mental Status: Mental status NL, Mood NL Labs/Xrays Labs Test 11/25/24 13:27 11/25/24 13:12 Range/Units White Blood Count 16.5 #H 4.4-10.8 10^3/uL Red Blood Count 4.66 4.5-5.90 10^6/uL Hemoglobin 12.9 L 13.5-17.5 g/dL Hematocrit 39.4 #L 41.0-53.0 % Mean Corpuscular Volume 84.6 80.0-100.0 fL Mean Corpuscular Hemoglobin 27.6 L 28.0-32.0 pg Mean Corpuscular Hemoglobin Concent 32.6 32.0-36.0 g/dL Red Cell Distribution Width 14.1 11.8-14.3 % Platelet Count 434 # 140-450 10^3/uL Mean Platelet Volume 7.0 6.9-10.8 fL Neutrophils (%) (Auto) 84.6 H 37.0-80.0 % Lymphocytes (%) (Auto) 9.4 L 10.0-50.0 % Monocytes (%) (Auto) 5.5 0.0-12.0 % Eosinophils (%) (Auto) 0.1 0.0-7.0 % Basophils (%) (Auto) 0.4 0.0-2.0 % Neutrophils # (Auto) 14.0 H 1.6-8.6 10 ^3/uL Lymphocytes # (Auto) 1.6 0.4-5.4 10 ^3/uL Monocytes # (Auto) 0.9 0-1.3 10 ^3/uL Eosinophils # (Auto) 0 0-0.8 10 ^3/uL Basophils # (Auto) 0.1 0-0.2 10 ^3/uL Nucleated Red Blood Cells 0.1 % Sodium Level 137 136-145 mmol/L Potassium Level 3.6 3.5-5.1 mmol/L Chloride Level 103 98-107 mmol/L Carbon Dioxide Level 20 20-31 mmol/L Anion Gap 14 5-15 Blood Urea Nitrogen 7 L 9-23 mg/dL Creatinine 0.89 0.700-1.30 mg/dL Glomerular Filtration Rate Calc 108 >90 mL/min BUN/Creatinine Ratio 7.9 L 10.0-20.0 Serum Glucose 87 74-106 mg/dL Calcium Level 9.3 8.7-10.4 mg/dL Lactic Acid Level 1.2 0.4-2.0 mmol/L SEPSIS Sepsis Screen Date sepsis recognized/suspect: Nov 25, 2024 Time Sepsis recognized/suspect: 1133 Recent Procedure: No On Antibiotic Therapy: Yes Respiratory Rate >20: No Heart Rate >90: Yes Temp<36 C (96.8 F) or >38.3 C: No SBP <90 or MAP <65 mmHG: No New Acute Mental Status Change: No Is the patient on CPAP, BIPAP,: No Physician Orders Vancomycin Per Pharmacy (11/25/24 12:45) Blood Culture (11/25/24 12:39) Sodium Chloride 0.9% (11/25/24 14:15) Admit (11/25/24 14:28) Urinalysis (11/25/24 14:31) Bilat Lower Dvt (11/25/24 14:31) Rt Lower Extremity W Con (11/25/24 14:31) NS (11/25/24 14:45) Vital Signs Date Time Temp Pulse Resp B/P (MAP) Pulse Ox O2 Delivery O2 Flow Rate FiO2 11/25/24 13:46 100.7 107 17 163/100 (121) 100 100.7 11/25/24 11:35 99.8 104 18 130/90 100 99.8 Laboratory Tests Test 11/25/24 13:12 11/25/24 13:27 Lactic Acid Level 1.2 mmol/L (0.4-2.0) White Blood Count 16.5 10^3/uL (4.4-10.8) #H Medications Medications Dose Ordered Sig/Francisco Route Start Time Stop Time Status Last Admin Dose Admin Acetaminophen 325 mg ONCE ONCE PO 11/25/24 14:15 11/25/24 14:16 DC 11/25/24 14:38 325 MG Acetaminophen/ Hydrocodone Bitart 1 tab ONCE ONCE PO 11/25/24 12:45 11/25/24 13:25 DC 11/25/24 13:31 1 TAB Ceftriaxone Sodium 50 ml @ 100 mls/hr ONCE ONCE IV 11/25/24 12:45 11/25/24 13:25 DC 11/25/24 13:31 100 MLS/HR Sodium Chloride 2,550 ml @ 2,550 mls/hr ONCE ONCE IV 11/25/24 14:15 11/25/24 15:14 11/25/24 14:33 2,550 MLS/HR Assessment/Plan Assessment/Plan Assessment and plan: # Sepsis due to cellulitis of the right lower extremity - the patient was presented with elevated temperature, tachycardia, with elevated WBC count - IV normal saline at 30 cc/kg was given - IV NS at 75 mL/hours - IV vancomycin as per pharmacy and IV ceftriaxone 1 g daily - Doppler scan of the bilateral lower extremity demonstrated slow /turbulent flow within the left lower extremity deep veins especially in the region of the left common femoral vein and superficial femoral vein. Right inguinal lymphm node measuring 3.2 x 1.4 cm with fatty hilum. - Pending CT scan of the right lower extremity with contrast and blood culture - IV vancomycin as per pharmacy and IV ceftriaxone 1 g daily. # Essential hypertension - Losartan 50 mg p.o. daily # Type 2 diabetes mellitus, hemoglobin A1c 6.6 - Mild sliding scale of insulin # DVT prophylaxis - Lovenox 40 mg sc daily Goal of care discussed with the patient for more than 20 minutes full code Plan discussed with Dr. Friedman Plan discussed with: Patient, Other My Orders Orders - MIRNA CROFT RESIDENT Procedure Category Date Status Time Admit ADMIT 11/25/24 Transmitted 14:28 Urinalysis LAB 11/25/24 Logged 14:31 Bilat Lower Dvt US 11/25/24 Logged 14:31 Rt Lower Extremity W CT 11/25/24 Logged CON 14:31 NS PHA 11/25/24 Verified 14:45 Date of Service: Nov 25, 2024 Billing Provider: JODI FRIEDMAN MD Common Visit Codes: [id number] INP/OBS CARE (HIGH) ALEJANDROQUETAMIRNA RESIDENT Nov 25, 2024 14:39 JODI FRIEDMAN MD Nov 25, 2024 16:42
[2024-11-25] MEDS: SODIUM CHLORIDE 0.9% 1,000 ML IV SCH (14:45)
[2024-11-25] MEDS ORDERED: DEXTROSE (50%) 50ML SYRG IV PRN (14:45)
--- NOTE | 2024-11-25 15:29 | DVH ---
Technique: Real-time ultrasound imaging, with color Doppler and compression of the bilateral common femoral vein, femoral vein, greater saphenous vein, and popliteal vein. Indication: Rule out DVT Comparison: US BILAT LOWER DVT on DOS: 11/17/24, US BILAT LOWER DVT on DOS: 01/21/23 Findings: There is normal compressibility and flow augmentation in all of the imaged deep veins. There are no f illing defects. Slow /turbulent flow within the left lower extremity deep veins especially in the reg ion of the left common femoral vein and superficial femoral vein. Right inguinal lymphm node measuring 3.2 x 1.4 cm with fatty hilum. Impression: No evidence of DVT in the bilateral lower extremities. Sluggish flow within the common femoral/ superficial femoral veins which could be secondary to venous stasis, more proximal venous stenosis, heart failure . If there is concern for more proximal deep v ein thrombosis recommend obtaining CT venogram of the abdomen/pelvis
[2024-11-25] MEDS: LOSARTAN POTASSIUM 50 MG TAB PO ONE (15:31)
[2024-11-25] MEDS: ERGOCALCIFEROL 50,000 UNIT(1.25MG) CAP PO SCH (15:31)
[2024-11-25] MEDS: IOHEXOL 300 MG/ML 100ML BOTTLE IJ ONE (16:00)
[2024-11-25] MEDS: InsuLIN REG 1unit/0.01ml Soln (100units/ml) SC SCH (17:00)
[2024-11-25] MEDS: ACCU-CHEK COMFORT CURVE STRIP VI SCH (17:00)
--- NOTE | 2024-11-25 17:00 | DVH ---
EXAM: CT RT LOWER EXTREMITY W CON HISTORY: Swelling of rt lower extremity COMPARISON: CT scan of the right lower extremity dated 11/17/2024. TECHNIQUE: Helical CT images of the right lower extremity were performed with IV contrast. Sagittal a nd coronal reformatted images were obtained. This CT exam was performed using one or more of the foll owing dose reduction techniques: Automated exposure control, adjustment of the mA and/or kv according to patient size, or the use of iterative reconstruction techniques. Radiation Dose Information: CT D ose: CTDI volume is 14.41 mGy. Dose-length product is 1711.22 mGy*cm FINDINGS: No acute fracture is identified about the right femur, tibia, or fibula. No significant degenerative changes of the right hip. There are degenerative changes of the right knee, greatest in the medial c ompartment. Small plantar calcaneal bone spur and Achilles insertion enthesophyte are incidentally no rolando. There is a prominent os trigonum. There is subcutaneous edema of the right lower extremity at an d below the lower leg. No evidence of soft tissue abscess. No abnormal enhancing lesions are identifi ed here. There are mildly enlarged lymph nodes in the right inguinal region, similar to that seen pre viously. The prostate is mildly enlarged. IMPRESSION: 1. Soft tissue swelling of the right lower extremity at and below the level of the right knee, withou t evidence of soft tissue abscess. 2. No fractures are identified about The right lower extremity. 3. Degenerative changes of the right knee, greatest in the medial compartment. 4. Mild prostatic enlargement. 5. Mildly prominent right inguinal lymph nodes, similar to that seen on CT scan performed 8 days robel ier, presumably reactive.
[2024-11-25] MEDS: VANCOMYCIN 1GM/250ML KIT 250 ML IV SCH (17:15)
--- NOTE | 2024-11-25 17:41 | DVH ---
BILATERAL Lower Extremity Arterial Duplex Date: 11/25/2024 04:53 PM Clinical History: pvd Comparison: None Technique: Duplex Doppler evaluation including color Doppler and spectral/pulsed waveform analysis of the lower extremity arteries was performed. Finding: RIGHT: Peak systolic velocities are as follows: PROPERTY [employer]ER 107 cm/s triphasic waveform Deep femoral 64 cm/s biphasic waveform SFA proximal 94 cm/s triphasic waveform SFA mid-portion 128 cm/s triphasic waveform SFA distal 148 cm/s triphasic waveform, below 30% stenosis Popliteal 102 cm/s triphasic waveform Posterior tibial 92 cm/s triphasic waveform Anterior tibial 64 cm/s triphasic waveform Dorsalis pedis 66 cm/s triphasic waveform The waveforms are biphasic waveform in the deep femoral artery. Triphasic waveform throughout. LEFT: Peak systolic velocities are as follows: PROPERTY HANDLER 101 cm/s triphasic waveform Deep femoral 71 cm/s triphasic waveform SFA proximal 73 cm/s triphasic waveform SFA mid-portion 84 cm/s triphasic waveform SFA distal 92 cm/s triphasic waveform Popliteal 53 cm/s triphasic waveform Posterior tibial 77 cm/s triphasic waveform Anterior tibial 22 cm/s triphasic waveform Dorsalis pedis 78 cm/s triphasic waveform The waveforms are triphasic waveform throughout. REFERENCE VALUES, [facility] ([facility]) vascular Imaging Lab Criteria: Peak systolic velocity ranges (in cm/sec) are as follows: <150 cm/s - <20 % stenosis 150-200 cm/s - 20-49% stenosis 200-300 cm/s - 50-75% stenosis >300 cm/s -> 75% stenosis IMPRESSION: 1. There is no evidence for peripheral vascular insufficiency in the right lower extremity. 2. There is no evidence for peripheral vascular insufficiency in the left lower extremity. 3. No significant focal stenosis is identified.
--- NOTE | 2024-11-25 18:05 | DVHCONRES ---
Date Seen: Nov 25, 2024 Resident Creating Document: FIFI MARQUEZ Jr., MD Referring Physician er Reason for Consultation Right leg swelling History of Present Illness 44-year-old male with past medical history of hypertension, type 2 diabetes mellitus was brought today from discharge clinic due to swelling of his right calf. The patient was recently admitted in [facility] for cellulitis and was disc harged with Keflex 500 mg p.o. b.i.d.. The patient stated that since discharge he has increased swelling redness and pain in his right calf, which is sharp/burning pain, 10/10, aggravated by dangling or trying to bear weight on his right leg and slightly relieved by elevation of his right leg. He denies fever, chills, shortness of breath, abdominal pain, nausea, vomiting, recent trauma or any change in bowel and bladder habit. Patient is having difficulty walking on his foot currently. He does does grab an episode similar to this over a year ago where he was admitted for several days with similar symptoms. He has never had a DVT. 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 No claudication or rest pain. Past Medical History Diabetes hypertension Past Surgical History None Family History: Diabetes mellitus G8 MOTHER G8 BROTHER 19 CHILD Hypertension G8 MOTHER Social History Nonsmoker nondrinker Allergies: Coded Allergies: NO KNOWN ALLERGIES (Unverified , 01/21/23) Home Meds Active Scripts Cephalexin (KEFLEX CAPSULE) 250 Mg Cp, 500 MG PO QID for 7 Days, #56 CAP 0 Refills Prov:JORDIN MCKEON RESIDENT 11/19/24 Hydrocodone-Acetaminophen (Hydrocodone Bitartrate/AC 5-325 mg) 1 Tab Tab, 1 TAB PO Q6HR PRN, #30 TAB Prov:MALINI MEEK MD 01/23/23 Reported Medications Multiple Vitamins W/ Minerals (MULTI COMPLETE) Complete Cap, 1 OR, CAP 01/22/23 Discontinued Reported Medications Apple Cider Vinegar (Apple Cider Vinegar) 500 Mg Tab, 500 MG PO, TAB 01/22/23 Discontinued Scripts Clindamycin Hcl (Clindamycin Hcl) 300 Mg Cap, 1 CAP PO TID, #30 CAP Prov:MALINI MEEK MD 01/23/23 Cephalexin (KEFLEX CAPSULE) 250 Mg Cp, 1 CAP PO QID, #40 CAP Prov:MALINI MEEK MD 01/23/23 Current Medications Current Medications Medications (Trade) Dose Ordered Sig/Francisco Route PRN Reason Start Time Stop Time Status Last Admin Vancomycin HCl 0 ml @ 0 mls/hr UD IV 11/25/24 12:45 11/25/24 16:03 DC Sodium Chloride 1,000 ml @ 75 mls/hr [id number] IV 11/25/24 14:45 Ceftriaxone Sodium 50 ml @ 100 mls/hr DAILY IV 11/26/24 10:00 Ergocalciferol (Vitamin D 50,000 Unit) 50,000 unit Q7D PO 11/25/24 14:45 11/25/24 15:31 Acetaminophen (Tylenol Tablet Or Capsule) 650 mg Q6HPRN PRN PO PAIN SCALE 1 THRU 6 11/25/24 14:45 Losartan Potassium (Cozaar Tablet) 50 mg DAILY PO 11/26/24 10:00 Diagnostic Test (Pha) (Accu-Chek Comfort Curve T) 1 strip ACHS 11/25/24 17:00 11/25/24 17:00 Insulin Human Regular (InsuLIN R) ACHS SC 11/25/24 17:00 Dextrose 50 ml UD PRN IV Blood Sugar LESS THAN 60 11/25/24 14:45 Vancomycin HCl 0 ml @ 0 mls/hr UD IV 11/25/24 16:00 Vancomycin HCl 250 ml @ 250 mls/hr Q1H IV 11/25/24 16:15 11/25/24 18:14 11/25/24 17:56 Enoxaparin Sodium (Lovenox) 40 mg DAILY SC 11/26/24 10:00 Review of Systems All systems reviewed otherwise negative than a what is in the HPI. Vital Signs Vital Signs Date Time Temp Pulse Resp B/P (MAP) Pulse Ox O2 Delivery O2 Flow Rate FiO2 11/25/24 17:43 89 16 97 Room Air 11/25/24 17:40 99.1 143/93 (110) 99.1 Physical Exam Head eyes ears nose and throat exam eyes are nonicteric conjunctiva is pink neck was supple no JVD no lymphadenopathy no carotid bruits lungs are clear to auscultation heart was regular rate and rhythm abdomen is soft nontender no abdominal masses the lower extremities palpable femoral pulses palpable pedal pulses he has 1+ edema of the right leg with a erythema of the calf. He does have some mild lymphadenopathy in the right groin as well. No open wounds Labs/Diagnostic Data Labs Test 11/25/24 13:27 11/25/24 13:12 Range/Units White Blood Count 16.5 #H 4.4-10.8 10^3/uL Red Blood Count 4.66 4.5-5.90 10^6/uL Hemoglobin 12.9 L 13.5-17.5 g/dL Hematocrit 39.4 #L 41.0-53.0 % Mean Corpuscular Volume 84.6 80.0-100.0 fL Mean Corpuscular Hemoglobin 27.6 L 28.0-32.0 pg Mean Corpuscular Hemoglobin Concent 32.6 32.0-36.0 g/dL Red Cell Distribution Width 14.1 11.8-14.3 % Platelet Count 434 # 140-450 10^3/uL Mean Platelet Volume 7.0 6.9-10.8 fL Neutrophils (%) (Auto) 84.6 H 37.0-80.0 % Lymphocytes (%) (Auto) 9.4 L 10.0-50.0 % Monocytes (%) (Auto) 5.5 0.0-12.0 % Eosinophils (%) (Auto) 0.1 0.0-7.0 % Basophils (%) (Auto) 0.4 0.0-2.0 % Neutrophils # (Auto) 14.0 H 1.6-8.6 10 ^3/uL Lymphocytes # (Auto) 1.6 0.4-5.4 10 ^3/uL Monocytes # (Auto) 0.9 0-1.3 10 ^3/uL Eosinophils # (Auto) 0 0-0.8 10 ^3/uL Basophils # (Auto) 0.1 0-0.2 10 ^3/uL Nucleated Red Blood Cells 0.1 % Sodium Level 137 136-145 mmol/L Potassium Level 3.6 3.5-5.1 mmol/L Chloride Level 103 98-107 mmol/L Carbon Dioxide Level 20 20-31 mmol/L Anion Gap 14 5-15 Blood Urea Nitrogen 7 L 9-23 mg/dL Creatinine 0.89 0.700-1.30 mg/dL Glomerular Filtration Rate Calc 108 >90 mL/min BUN/Creatinine Ratio 7.9 L 10.0-20.0 Serum Glucose 87 74-106 mg/dL Calcium Level 9.3 8.7-10.4 mg/dL Lactic Acid Level 1.2 0.4-2.0 mmol/L EXAM: CT RT LOWER EXTREMITY W CON HISTORY: Swelling of rt lower extremity COMPARISON: CT scan of the right lower extremity dated 11/17/2024. TECHNIQUE: Helical CT images of the right lower extremity were performed with IV contrast. Sagittal and coronal reformatted images were obtained. This CT exam was performed using one or more of the following dose reduction techniques: Automated exposure control, adjustment of the mA and/or kv according to patient size, or the use of iterative reconstruction techniques. Radiation Dose Information: CT Dose: CTDI volume is 14.41 mGy. Dose-length product is 1711.22 mGy*cm FINDINGS: No acute fracture is identified about the right femur, tibia, or fibula. No significant degenerative changes of the right hip. There are degenerative changes of the right knee, greatest in the medial compartment. Small plantar calcaneal bone spur and Achilles insertion enthesophyte are incidentally noted. There is a prominent os trigonum. There is subcutaneous edema of the right lower extremity at and below the lower leg. No evidence of soft tissue abscess. No abnormal enhancing lesions are identified here. There are mildly enlarged lymph nodes in the right inguinal region, similar to that seen previously. The prostate is mildly enlarged. IMPRESSION: 1. Soft tissue swelling of the right lower extremity at and below the level of the right knee, without evidence of soft tissue abscess. 2. No fractures are identified about The right lower extremity. 3. Degenerative changes of the right knee, greatest in the medial compartment. 4. Mild prostatic enlargement. 5. Mildly prominent right inguinal lymph nodes, similar to that seen on CT scan performed 8 days earlier, presumably reactive. Assessment 44-year-old male with a one-week history of right leg swelling cellulitis. The swelling has slowly improved however he is having increasing pain. Ultrasound was negative for DVT. A CT venogram is pending. Recommend continue IV antibiotics elevate leg and we will consider a formal venogram if there was any abnormalities with a CT venogram. Plan/Recommendation 44-year-old male with a one-week history of right leg swelling cellulitis. The swelling has slowly improved however he is having increasing pain. Ultrasound was negative for DVT. A CT venogram is pending. Recommend continue IV antibiotics elevate leg and we will consider a formal venogram if there was any abnormalities with a CT venogram. Plan discussed with: Patient, Spouse FIFI MARQUEZ Jr., MD Nov 25, 2024 18:05
[2024-11-25 21:02] VITALS: BP 161/99; PULSE 97; RESP 20; TEMP 99.4; O2SAT 98
[2024-11-25 21:55] VITALS: BP 157/90
[2024-11-26] MEDS: ACETAMINOPHEN 500 MG TAB or CAP PO PRN (00:19)
[2024-11-26 00:24] VITALS: BP 154/93; PULSE 98; RESP 20; TEMP 100.3; O2SAT 96
[2024-11-26] MEDS: VANCOMYCIN 1.5GM/250ML 250 ML IV SCH (05:44)
[2024-11-26 06:02] LABS: Hematocrit 34.3 % (41.0-53.0); Hemoglobin 11.5 g/dL (13.5-17.5); Mean Corpuscular Hemoglobin 27.9 pg (28.0-32.0); Mean Corpuscular Volume 83.1 fL (80.0-100.0); Nucleated Red Blood Cells % 0.0 %
[2024-11-26 06:10] LABS: Anion Gap 9 (5-15); Carbon Dioxide 27 mmol/L (20-31); Chloride 102 mmol/L (98-107); Potassium 3.9 mmol/L (3.5-5.1); Sodium 138 mmol/L (136-145)
[2024-11-26 06:11] LABS: Calcium 9.2 mg/dL (8.7-10.4)
[2024-11-26 06:16] LABS: Glucose 88 mg/dL (74-106)
[2024-11-26 06:19] LABS: BUN/Creatinine Ratio 9.3 (10.0-20.0); Blood Urea Nitrogen 8 mg/dL (9-23)
[2024-11-26 09:00] VITALS: BP 151/101; PULSE 102; RESP 17; TEMP 100.7; O2SAT 95
[2024-11-26] MEDS ORDERED: HYDROcodone-ACET 5/325MG TAB PO PRN (10:15)
[2024-11-26] MEDS ORDERED: HYDROcodone-ACET 10/325MG TAB PO PRN (10:15)
[2024-11-26] MEDS: LOSARTAN POTASSIUM 50 MG TAB PO SCH (10:42)
[2024-11-26] MEDS: ENOXAPARIN SOD 40 MG/0.4 ML SYRINGE SC SCH (10:43)
[2024-11-26] MEDS: HYDROcodone-ACET 5/325MG TAB PO PRN (10:43)
--- NOTE | 2024-11-26 13:31 | DVH ---
EXAM: XY CHEST PORTABLE Indication: sob Technique: Single frontal view of the chest was obtained Comparison: CT CT ANGIO CHEST CONTRAST on DOS: 01/21/23, XY CHEST PORTABLE on DOS: 01/21/23 FINDINGS: Lines and Tubes: None Lungs: No focal consolidation. Pleura: No effusion. No pneumothorax. Cardiomediastinal contours: Unremarkable Bones: No acute osseous abnormality. IMPRESSION: No acute cardiopulmonary disease.
[2024-11-26 13:35] LABS: Urine Protein, UAD Negative (Negative)
[2024-11-26] MEDS ORDERED: IOHEXOL 300 MG/ML 100ML BOTTLE IJ ONE (13:51)
[2024-11-26 14:40] VITALS: BP 149/99; PULSE 94
--- NOTE | 2024-11-26 15:31 | DVH ---
CTA right lower extremity Clinical Indication: To exclude chronic venous stasis of lower extremity Technique: Multiple contiguous axial images were obtained through the right lower extremity involvin g the distal right femur and through the right lower extremity to the foot following the administrati on contrast material. Post processing coronal and sagittal reconstruction images were made from the axial images. Image post-processing was obtained. IV contrast: 100 mL Omnipaque 300 DLP: 7.8 mGy ; DLP: 657.56 mGy Comparison: US BILAT LOW EXT ART DUPLEX on DOS: 11/25/24, US BILAT LOWER DVT on DOS: 11/25/24 CT righ t lower extremity from 11/17/2024 FINDINGS: Normal mineralization and alignment. Mild medial and lateral compartment joint space narrowing and mi ld tricompartment osteophyte formation compatible with osteoarthritis. There is subchondral lucency i n the articular surface of the medial femoral condyle (series 601, image 57). There is no additional acute fracture. No focal osteopenia or cortical destruction to suggest osteomyelitis. There is moder ate subcutaneous edema in the visualized right lower extremity. Muscle bundles about the visualized r ight lower extremity are intact. Small right knee joint effusion. Calcified athero sclerosis is prese nt. No definite filling defect in the opacified veins and arteries. IMPRESSION: 1. Moderate subcutaneous edema in the visualized right lower extremity. No soft tissue gas or fluid c ollection. 2. No definite filling defect in the opacified veins and arteries in the visualized right lower extre mity. 3. Persistent Subchondral lucency in the articular surface of the medial femoral condyle which could reflect a subchondral fracture of indeterminate chronicity or osteochondral fracture. Consider evalu ation with MRI if clinically warranted. 4. Small right knee joint effusion. 5. Mild tricompartment osteoarthritis.
[2024-11-26 16:44] VITALS: BP 141/86; PULSE 103; RESP 16; TEMP 99.8; O2SAT 93
--- NOTE | 2024-11-26 20:21 | DVHPNRES ---
Progress Note Date Seen: Nov 26, 2024 Resident Creating Document: CALVIN WESTBROOK RESIDENT Medical Necessity Reason Pt with a Central, PICC or Fol: No Subjective Review of Systems Berta Peck is a 44-year-old male, with recently diagnosed DM2 and hypertension. The patient came to the ED with chief complain of 3 weeks of right leg pain, stabbing/burning like, 7/10, irradiated to the back of the leg, associated with erythema and warmth that surround all the leg. On further questioning, the patient was recently admitted in [facility] on 11/17/24; he was discharged on 11/19/24 with oral antibiotics (Keflex 500 mg p.o. b.i.d for 7 days). The patient report that the pain, edema and erythema return, he also noticed a new bulla over the right internal malleolus, this prompted his visit to the ED. The patient denies fever, chills, nausea, nausea vomit, abdominal pain or other symptoms.In the ED: WBC:16.5, Hb: 11.5mg/dl. The patient was admitted. On past medical history the patient denies surgery, denies smoking. Denies ETOH Use, Denies Drug Use, the patient lives at home. Admission course: today, the patient was evaluated at bedside, VS: 154/93mmHg, HR: 98, Febrile: 100.3 F. Labs: WBC: 13.2x10e3/uL, Hb: 11.5mg/dl, HbA1C: 6.6%, rest wnl. The patient reports continues pain 9/10, redness and warmth. The patient's right leg was gwen to delimited disease extension and to assess progress. CT of right leg showed: Soft tissue swelling of the right lower extremity at and below the level of the right knee, without evidence of soft tissue abscess. No fractures are identified about The right lower extremity. Degenerative changes of the right knee, greatest in the medial compartment. Mild prostatic enlargement. Mildly prominent right inguinal lymph nodes, similar to that seen on CT scan performed 8 days earlier, presumably reactive. The patient is been treated with analgesia and antibiotics: Ceftriaxone 1g and vancomycin 1 gr. The WBC have improved compared with ED levels. Surgery on board, a Ct venogram of right leg was ordered. We will monitoring this patient's progress closely. ROS: Constitutional: reports fever and chills, The patient denied diaphoresis, fatigue, malaise, sweats, weakness, others EENTM: denies: blurred vision, double vision, ear bleeding, ear discharge, ear drainage, ear pain, ear ringing, eye pain, eye redness, hearing loss, mouth pain, mouth swelling, nasal discharge, nose bleeding, nose congestion, nose pain, photophobia, tearing, throat pain, throat swelling, voice changes, others Respiratory: denies: cough, hemoptysis, orthopnea, SOB at rest, shortness of breath, SOB with excertion, stridor, wheezing, others Cardiovascular: denies: chest pain, dizzy spells, diaphoresis, Dyspnea on exertion, edema, irregular heart beat, left arm pain, lightheadedness, palpitations, PND, syncope, others Gastrointestinal: denies: abdomen distended, abdominal pain, blood streaked bowels, constipated, diarrhea, dysphagia, difficulty swallowing, hematemesis, melena, nausea, poor appetite, poor fluid intake, rectal bleeding, rectal pain, vomiting, others Genitourinary: denies: burning, dysuria, flank pain, frequency, hematuria, incontinence, penile discharge, penile sore, pain, testicle pain, testicle swelling, urgency, others Neurological: denies: dizziness, fainting, headache, left sided numbness, left sided weakness, numbness, paresthesia, pre-existing deficit, right sided numbness, right sided weakness, seizure, speech problems, tingling, tremors, weakness, others Musculoskeletal: reports:edema, erythema and pain of right leg Integumetry: reports: others (Redness of right calf ) Hematologic/Lymphatic: denies: anemia, blood clots, easy bleeding, easy bruising, swollen glands, others Endocrine: denies: excessive hunger, excessive sweating, excessive thirst, excessive urination, flushing, intolerance to cold, intolerance to heat, unexplained weight gain, unexplained weight loss, others Objective vital signs Vital Sign Date Time Temp Pulse Resp B/P (MAP) Pulse Ox O2 Delivery O2 Flow Rate FiO2 11/26/24 18:49 98.9 11/26/24 16:44 103 16 141/86 (104) 93 11/26/24 08:00 Room Air* 0 21 Total Intake and Output 11/25/24 11/25/2411/26/25 15:00 23:00 07:00 Intake Total 2850 ml 400 ml Output Total 1100 ml Balance 2850 ml -700 ml medications Current Medications Medications Dose Ordered Sig/Francisco Route Start Time Stop Time Status Last Admin Dose Admin Ceftriaxone Sodium 50 ml @ 100 mls/hr DAILY IV 11/26/24 10:00 11/26/24 10:42 100 MLS/HR Ergocalciferol 50,000 unit Q7D PO 11/25/24 14:45 11/25/24 15:31 50,000 UNIT Acetaminophen 650 mg Q6HPRN PRN PO 11/25/24 14:45 11/26/24 17:49 650 MG Losartan Potassium 50 mg DAILY PO 11/26/24 10:00 11/26/24 10:42 50 MG Diagnostic Test (Pha) 1 strip ACHS 11/25/24 17:00 11/26/24 17:07 1 STRIP Insulin Human Regular ACHS SC 11/25/24 17:00 Dextrose 50 ml UD PRN IV 11/25/24 14:45 Vancomycin HCl 0 ml @ 0 mls/hr UD IV 11/25/24 16:00 Enoxaparin Sodium 40 mg DAILY SC 11/26/24 10:00 11/26/24 10:43 40 MG Vancomycin HCl 250 ml @ 166.667 mls/hr Q12H IV 11/26/24 06:00 11/26/24 17:39 166.667 MLS/HR Acetaminophen/ Hydrocodone Bitart 1 tab Q4HPRN PRN PO 11/26/24 10:30 11/26/24 10:43 1 TAB Examination General Appearance: patient in mild distress due to pain. alert, oriented X3, Cooperative. HEENT: Atraumatic, PERRLA, EOMI, Mucous membrane moist/pink Respiratory: normal lung expansion. normal breath sounds Cardiovascular: Regular rate, Normal S1, Normal S2, No murmurs, no chest wall tenderness Abdominal: Normal bowel sounds, Soft, No tenderness, No hepatospenomegaly, No masses Extremities: Right leg: Erythema and edema from ankle up to 2 cm below the knee. Leg is tender to light touch. Pulses are present 5/5, capillary refill <3 sec. Skin: No rashes, No breakdown, No significant lesion Neuro: Grossly intact cranial nerves Cranial nerves 3-12 NL, Reflexes 2+ Psych/Mental Status: Normal mood. laboratory and microbiology Laboratory Tests 11/26/24 04:41 Test 11/26/24 04:41 Range/Units Serum Glucose 88 74-106 mg/dL Microbiology Date/Time Source Procedure Growth Status 11/25/24 13:12 Blood Blood Culture - Preliminary NO GROWTH AFTER 24 HOURS OF INCUBATION. Resulted 11/25/24 10:30 Nose MRSA Screen - Final Complete Problem List/Assessment/Plan Problem List/Assessment/Plan #Sepsis due to cellulitis of the right lower extremity - the patient was presented with elevated temperature, tachycardia, with elevated WBC: 13.2 - IV Fluids NS at 75 mL/hours - IV vancomycin as per pharmacy and IV ceftriaxone 1 g daily - Doppler scan of the bilateral lower extremity demonstrated slow /turbulent flow within the left lower extremity deep veins especially in the region of the left common femoral vein and superficial femoral vein. Right inguinal lymphm node measuring 3.2 x 1.4 cm with fatty hilum. - Pending blood culture -UA: negative. # Essential hypertension - Losartan 50 mg p.o. daily # Type 2 diabetes mellitus, hemoglobin A1c 6.6 - Mild sliding scale of insulin # DVT prophylaxis - Lovenox 40 mg sc daily #Anemia Hb: 11.5mg/dl Iron panel FOBT #Obesity BMI: 30.4 Diet: Low carbohydrate and cardiac diet DVT prophylaxis Goals of care discussed with the patient > 35 min. Discussed plan of care with Dr. Friedman Code status: Full code PCP: Dr. Gonzalez Plan discussed with: Patient, the patient agrees with the plan. Plan discussed with: Patient My Orders My Orders Orders - CALVIN WESTBROOK Procedure Category Date Status Time Stool Occult Blood LAB 11/26/24 Logged 09:11 Sepsis reassessment post fluid Capillary Refill: < 3 seconds Date of Service: Nov 26, 2024 Billing Provider: CALVIN WESTBROOK Common Visit Codes: [id number] INP/OBS CARE(HIGH) CALVIN WESTBROOK Nov 26, 2024 20:21
[2024-11-26 20:57] VITALS: BP 149/100; PULSE 99; RESP 17; TEMP 99.2; O2SAT 97
[2024-11-26 23:12] LABS: COVID19 ANTIGEN SOFIA FIA NEGATIVE (NEGATIVE)
[2024-11-26] MEDS: HYDROcodone-ACET 10/325MG TAB PO PRN (23:58)
[2024-11-27] VITALS (7 sets, daily range): BP systolic 122–163; BP diastolic 91–101; PULSE 90–102; RESP 17–19; TEMP 97.6–100.8; O2SAT 93–97
[2024-11-27 07:34] LABS: Nucleated Red Blood Cells % 0.0 %
[2024-11-27 07:37] LABS: Hematocrit 35.0 % (41.0-53.0); Hemoglobin 11.7 g/dL (13.5-17.5); Mean Corpuscular Hemoglobin 27.8 pg (28.0-32.0); Mean Corpuscular Volume 83.3 fL (80.0-100.0)
[2024-11-27 07:49] LABS: Calcium 9.1 mg/dL (8.7-10.4); Chloride 99 mmol/L (98-107); Potassium 4.2 mmol/L (3.5-5.1); Sodium 137 mmol/L (136-145)
[2024-11-27 07:50] LABS: Anion Gap 11 (5-15); Carbon Dioxide 27 mmol/L (20-31)
[2024-11-27 07:55] LABS: BUN/Creatinine Ratio 9.1 (10.0-20.0); Glucose 80 mg/dL (74-106)
[2024-11-27 08:06] LABS: Blood Urea Nitrogen 9 mg/dL (9-23)
[2024-11-27 08:07] LABS: Prostate Specific Antigen 1.1 ng/mL (0.0-4.0)
[2024-11-27] MEDS: VANCOMYCIN 1.5GM/250ML 250 ML IV SCH (14:14)
--- NOTE | 2024-11-27 18:56 | DVHPNRES ---
Progress Note Date Seen: Nov 27, 2024 Resident Creating Document: CALVIN WESTBROOK RESIDENT Medical Necessity Reason Pt with a Central, PICC or Fol: No Subjective Review of Systems Berta Peck is a 44-year-old male, with recently diagnosed DM2 and hypertension. The patient came to the ED with chief complain of 3 weeks of right leg pain, stabbing/burning like, 7/10, irradiated to the back of the leg, associated with erythema and warmth that surround all the leg. On further questioning, the patient was recently admitted in [facility] on 11/17/24; he was discharged on 11/19/24 with oral antibiotics (Keflex 500 mg p.o. b.i.d for 7 days). The patient report that the pain, edema and erythema return, he also noticed a new bulla over the right internal malleolus, this prompted his visit to the ED. The patient denies fever, chills, nausea, nausea vomit, abdominal pain or other symptoms.In the ED: WBC:16.5, Hb: 11.5mg/dl. The patient was admitted. On past medical history the patient denies surgery, denies smoking. Denies ETOH Use, Denies Drug Use, the patient lives at home. Admission course: On 11/26/24, the patient was evaluated at bedside, VS: 154/93mmHg, HR: 98, Febrile: 100.3 F. Labs: WBC: 13.2x10e3/uL, Hb: 11.5mg/dl, HbA1C: 6.6%, rest wnl. The patient reports continues pain 9/10, redness and warmth. The patient's right leg was gwen to delimited disease extension and to assess progress. CT of right leg showed: Soft tissue swelling of the right lower extremity at and below the level of the right knee, without evidence of soft tissue abscess. No fractures are identified about The right lower extremity. Degenerative changes of the right knee, greatest in the medial compartment. Mild prostatic enlargement. Mildly prominent right inguinal lymph nodes, similar to that seen on CT scan performed 8 days earlier, presumably reactive. The patient is been treated with analgesia and antibiotics: Ceftriaxone 1g and vancomycin 1 gr. The WBC have improved compared with ED levels. Surgery on board, a CT venogram of right leg was ordered. On 11/27/24, the patient was re-evaluated at bedside, the patient reports feeling well, no new complaints. Vs were reviled, here was no fever during the night. The patient continues with IV antibiotics. WBC levels are improving to 12.7. We will monitoring this patient's progress closely. ROS: Constitutional: reports fever and chills, The patient denied diaphoresis, fatigue, malaise, sweats, weakness, others EENTM: denies: blurred vision, double vision, ear bleeding, ear discharge, ear drainage, ear pain, ear ringing, eye pain, eye redness, hearing loss, mouth pain, mouth swelling, nasal discharge, nose bleeding, nose congestion, nose pain, photophobia, tearing, throat pain, throat swelling, voice changes, others Respiratory: denies: cough, hemoptysis, orthopnea, SOB at rest, shortness of breath, SOB with excertion, stridor, wheezing, others Cardiovascular: denies: chest pain, dizzy spells, diaphoresis, Dyspnea on exertion, edema, irregular heart beat, left arm pain, lightheadedness, palpitations, PND, syncope, others Gastrointestinal: denies: abdomen distended, abdominal pain, blood streaked bowels, constipated, diarrhea, dysphagia, difficulty swallowing, hematemesis, melena, nausea, poor appetite, poor fluid intake, rectal bleeding, rectal pain, vomiting, others Genitourinary: denies: burning, dysuria, flank pain, frequency, hematuria, incontinence, penile discharge, penile sore, pain, testicle pain, testicle swelling, urgency, others Neurological: denies: dizziness, fainting, headache, left sided numbness, left sided weakness, numbness, paresthesia, pre-existing deficit, right sided numbness, right sided weakness, seizure, speech problems, tingling, tremors, weakness, others Musculoskeletal: reports:edema, erythema and pain of right leg Integumetry: reports: others (Redness of right calf ) Hematologic/Lymphatic: denies: anemia, blood clots, easy bleeding, easy bruising, swollen glands, others Endocrine: denies: excessive hunger, excessive sweating, excessive thirst, excessive urination, flushing, intolerance to cold, intolerance to heat, unexplained weight gain, unexplained weight loss, others Objective vital signs Vital Sign Date Time Temp Pulse Resp B/P (MAP) Pulse Ox O2 Delivery O2 Flow Rate FiO2 11/27/24 16:54 100.8 101 17 163/101 (121) 96 100.8 11/27/24 08:00 Room Air* 0 21 Total Intake and Output 11/26/24 11/26/24 11/27/24 15:00 23:00 07:00 Intake Total 300 ml 975 ml 800 ml Output Total 2700 ml 1500 ml Balance 300 ml -1725 ml -700 ml medications Current Medications Medications Dose Ordered Sig/Francisco Route Start Time Stop Time Status Last Admin Dose Admin Ceftriaxone Sodium 50 ml @ 100 mls/hr DAILY IV 11/26/24 10:00 11/27/24 09:32 100 MLS/HR Ergocalciferol 50,000 unit Q7D PO 11/25/24 14:45 11/25/24 15:31 50,000 UNIT Acetaminophen 650 mg Q6HPRN PRN PO 11/25/24 14:45 11/26/24 17:49 650 MG Losartan Potassium 50 mg DAILY PO 11/26/24 10:00 11/27/24 09:32 50 MG Diagnostic Test (Pha) 1 strip ACHS 11/25/24 17:00 11/27/24 16:07 1 STRIP Insulin Human Regular ACHS SC 11/25/24 17:00 11/26/24 21:38 3 UNITS Dextrose 50 ml UD PRN IV 11/25/24 14:45 Vancomycin HCl 0 ml @ 0 mls/hr UD IV 11/25/24 16:00 Enoxaparin Sodium 40 mg DAILY SC 11/26/24 10:00 11/27/24 09:32 40 MG Acetaminophen/ Hydrocodone Bitart 1 tab Q8HP PRN PO 11/26/24 21:30 11/27/24 16:01 1 TAB Vancomycin HCl 250 ml @ 166.667 mls/hr Q8H IV 11/27/24 14:00 11/27/24 14:14 166.667 MLS/HR Examination General Appearance: No in distress alert, oriented X3, Cooperative. HEENT: Atraumatic, PERRLA, EOMI, Mucous membrane moist/pink Respiratory: normal lung expansion. normal breath sounds Cardiovascular: Regular rate, Normal S1, Normal S2, No murmurs, no chest wall tenderness Abdominal: Normal bowel sounds, Soft, No tenderness, No hepatospenomegaly, No masses Extremities: Right leg: Erythema is improving and edema from ankle up to 2 cm below the knee. Leg is tender to light touch. Pulses are present 5/5, capillary refill <3 sec. Skin: No rashes, No breakdown, No significant lesion Neuro: Grossly intact cranial nerves Cranial nerves 3-12 NL, Reflexes 2+ Psych/Mental Status: Normal mood. laboratory and microbiology Laboratory Tests 11/27/24 05:24 Test 11/27/24 05:24 Range/Units Serum Glucose 80 74-106 mg/dL Microbiology Date/Time Source Procedure Growth Status 11/25/24 13:12 Blood Blood Culture - Preliminary NO GROWTH AFTER 48 HOURS OF INCUBATION. Resulted 11/25/24 10:30 Nose MRSA Screen - Final Complete Problem List/Assessment/Plan Problem List/Assessment/Plan #Sepsis due to cellulitis of the right lower extremity -WBC: 12.7 - IV Fluids NS at 75 mL/hours - IV vancomycin as per pharmacy and IV ceftriaxone 1 g daily - Doppler scan of the bilateral lower extremity demonstrated slow /turbulent flow within the left lower extremity deep veins especially in the region of the left common femoral vein and superficial femoral vein. Right inguinal lymphm node measuring 3.2 x 1.4 cm with fatty hilum. - blood culture: no growth at 48hrs -UA: no UTI. # Hypertensive disease with systolic/diastolic disfunction. - Losartan 50 mg p.o. daily # Type 2 diabetes mellitus, hemoglobin A1c 6.6% - Mild sliding scale of insulin -Accu-check # DVT prophylaxis - Lovenox 40 mg sc daily #Anemia Hb: 11.5mg/dl Iron panel FOBT #Obesity BMI: 30.4 Diet: Low carbohydrate and cardiac diet DVT prophylaxis Goals of care discussed with the patient > 35 min. Discussed plan of care with Dr. Friedman Code status: Full code PCP: Dr. Gonzalez Plan discussed with: Patient, the patient agrees with the plan. Plan discussed with: Patient My Orders My Orders Orders - CALVIN WESTBROOK Procedure Category Date Status Time Drug Screen LAB 11/27/24 Logged 06:31 Sepsis reassessment post fluid Capillary Refill: < 3 seconds Date of Service: Nov 27, 2024 Billing Provider: JODI FRIEDMAN MD Common Visit Codes: [id number] INP/OBS CARE(HIGH) CALVIN WESTBROOK RESIDENT Nov 27, 2024 18:56 JODI FRIEDMAN MD Dec 03, 2024 11:48
[2024-11-28] VITALS (8 sets, daily range): BP systolic 120–152; BP diastolic 82–110; PULSE 68–100; RESP 17–20; TEMP 97.1–99.2; O2SAT 95–98
[2024-11-28 07:00] LABS: Hematocrit 35.6 % (41.0-53.0); Hemoglobin 11.9 g/dL (13.5-17.5); Mean Corpuscular Hemoglobin 27.7 pg (28.0-32.0); Mean Corpuscular Volume 82.8 fL (80.0-100.0); Nucleated Red Blood Cells % 0.0 %
[2024-11-28 07:50] LABS: Albumin 4.1 g/dL (3.2-4.8); Anion Gap 10 (5-15); BUN/Creatinine Ratio 10.2 (10.0-20.0); Calcium 9.0 mg/dL (8.7-10.4); Carbon Dioxide 25 mmol/L (20-31); Glucose 78 mg/dL (74-106); Total Protein 8.0 g/dL (5.7-8.2)
[2024-11-28 07:51] LABS: Bilirubin, Total 0.6 mg/dL (0.2-1.0)
[2024-11-28 07:56] LABS: Alanine Aminotransferase 110 U/L (7-40); Blood Urea Nitrogen 9 mg/dL (9-23); Chloride 101 mmol/L (98-107); Potassium 4.0 mmol/L (3.5-5.1); Sodium 136 mmol/L (136-145)
[2024-11-28 08:11] LABS: Alkaline Phosphatase 99 U/L (46-116)
[2024-11-28] MEDS: PIPERACILLIN-TAZOB 3.375GM 100 ML IV ONE (11:30)
--- NOTE | 2024-11-28 13:50 | DVHPNRES ---
Progress Note Date Seen: Nov 28, 2024 Resident Creating Document: CALVIN WESTBROOK RESIDENT Medical Necessity Reason Pt with a Central, PICC or Fol: No Subjective Review of Systems Berta Peck is a 44-year-old male, with recently diagnosed DM2 and hypertension. The patient came to the ED with chief complain of 3 weeks of right leg pain, stabbing/burning like, 7/10, irradiated to the back of the leg, associated with erythema and warmth that surround all the leg. On further questioning, the patient was recently admitted in [facility] on 11/17/24; he was discharged on 11/19/24 with oral antibiotics (Keflex 500 mg p.o. b.i.d for 7 days). The patient report that the pain, edema and erythema return, he also noticed a new bulla over the right internal malleolus, this prompted his visit to the ED. The patient denies fever, chills, nausea, nausea vomit, abdominal pain or other symptoms.In the ED: WBC:16.5, Hb: 11.5mg/dl. The patient was admitted. On past medical history the patient denies surgery, denies smoking. Denies ETOH Use, Denies Drug Use, the patient lives at home. Admission course: On 11/26/24, the patient was evaluated at bedside, VS: 154/93mmHg, HR: 98, Febrile: 100.3 F. Labs: WBC: 13.2x10e3/uL, Hb: 11.5mg/dl, HbA1C: 6.6%, rest wnl. The patient reports continues pain 9/10, redness and warmth. The patient's right leg was gwen to delimited disease extension and to assess progress. CT of right leg showed: Soft tissue swelling of the right lower extremity at and below the level of the right knee, without evidence of soft tissue abscess. No fractures are identified about The right lower extremity. Degenerative changes of the right knee, greatest in the medial compartment. Mild prostatic enlargement. Mildly prominent right inguinal lymph nodes, similar to that seen on CT scan performed 8 days earlier, presumably reactive. The patient is been treated with analgesia and antibiotics: Ceftriaxone 1g and vancomycin 1 gr. The WBC have improved compared with ED levels. Surgery on board, a CT venogram of right leg was ordered. On 11/27/24, the patient was re-evaluated at bedside, the patient reports feeling well, no new complaints. Vs were reviewed, here was no fever during the night. The patient continues with IV antibiotics. WBC levels are improving to 12.7. We will monitoring this patient's progress closely. On 11/28/24, the patient was re-evaluated at bedside, VS, labs and chart was reviewed, BP was elevated this morning, Losartan was increased to 100mg daily. The patient reports feeling better today. the pain has improved to 6/10, the patient is afebrile. Today, Zocyn IV was added. WBC is improving to 10.4. We will continue following up with this patient. ROS: Constitutional: reports no fever or chills, The patient denied diaphoresis, fatigue, malaise, sweats, weakness, others EENTM: denies: blurred vision, double vision, ear bleeding, ear discharge, ear drainage, ear pain, ear ringing, eye pain, eye redness, hearing loss, mouth pain, mouth swelling, nasal discharge, nose bleeding, nose congestion, nose pain, photophobia, tearing, throat pain, throat swelling, voice changes, others Respiratory: denies: cough, hemoptysis, orthopnea, SOB at rest, shortness of breath, SOB with excertion, stridor, wheezing, others Cardiovascular: denies: chest pain, dizzy spells, diaphoresis, Dyspnea on exertion, edema, irregular heart beat, left arm pain, lightheadedness, palpitations, PND, syncope, others Gastrointestinal: denies: abdomen distended, abdominal pain, blood streaked bowels, constipated, diarrhea, dysphagia, difficulty swallowing, hematemesis, melena, nausea, poor appetite, poor fluid intake, rectal bleeding, rectal pain, vomiting, others Genitourinary: denies: burning, dysuria, flank pain, frequency, hematuria, incontinence, penile discharge, penile sore, pain, testicle pain, testicle swelling, urgency, others Neurological: denies: dizziness, fainting, headache, left sided numbness, left sided weakness, numbness, paresthesia, pre-existing deficit, right sided numbness, right sided weakness, seizure, speech problems, tingling, tremors, weakness, others Musculoskeletal: reports:edema, erythema and pain of right leg Integumetry: reports: others (Redness of right calf ) Hematologic/Lymphatic: denies: anemia, blood clots, easy bleeding, easy bruising, swollen glands, others Endocrine: denies: excessive hunger, excessive sweating, excessive thirst, excessive urination, flushing, intolerance to cold, intolerance to heat, unexplained weight gain, unexplained weight loss, others Objective vital signs Vital Sign Date Time Temp Pulse Resp B/P (MAP) Pulse Ox O2 Delivery O2 Flow Rate FiO2 11/28/24 09:00 99.2 93 20 152/110 (124) 96 99.2 11/28/24 08:00 Room Air* 0 21 Total Intake and Output 11/27/24 11/27/24 11/28/24 15:00 23:00 07:00 Intake Total 925 ml 960 ml Output Total 2325 ml 1640 ml Balance -1400 ml -680 ml medications Current Medications Medications Dose Ordered Sig/Francisco Route Start Time Stop Time Status Last Admin Dose Admin Ergocalciferol 50,000 unit Q7D PO 11/25/24 14:45 11/25/24 15:31 50,000 UNIT Acetaminophen 650 mg Q6HPRN PRN PO 11/25/24 14:45 11/26/24 17:49 650 MG Diagnostic Test (Pha) 1 strip ACHS 11/25/24 17:00 11/28/24 11:42 1 STRIP Insulin Human Regular ACHS SC 11/25/24 17:00 11/28/24 11:45 2 UNITS Dextrose 50 ml UD PRN IV 11/25/24 14:45 Vancomycin HCl 0 ml @ 0 mls/hr UD IV 11/25/24 16:00 Enoxaparin Sodium 40 mg DAILY SC 11/26/24 10:00 11/28/24 08:53 40 MG Acetaminophen/ Hydrocodone Bitart 1 tab Q8HP PRN PO 11/26/24 21:30 11/28/24 08:53 1 TAB Vancomycin HCl 250 ml @ 166.667 mls/hr Q8H IV 11/27/24 14:00 11/28/24 05:56 166.667 MLS/HR Losartan Potassium 100 mg DAILY PO 11/29/24 10:00 Piperacillin Sod/ Tazobactam Sod 100 ml @ 25 mls/hr Q8H IV 11/28/24 20:00 Examination General Appearance: No in distress alert, oriented X3, Cooperative. HEENT: Atraumatic, PERRLA, EOMI, Mucous membrane moist/pink Respiratory: normal lung expansion. normal breath sounds Cardiovascular: Regular rate, Normal S1, Normal S2, No murmurs, no chest wall tenderness Abdominal: Normal bowel sounds, Soft, No tenderness, No hepatospenomegaly, No masses Extremities: Right leg: Erythema is improving and edema from ankle up to 4cm below the knee. Leg is tender to light touch. Pulses are present 5/5, capillary refill <3 sec. Skin: No rashes, No breakdown, No significant lesion Neuro: Grossly intact cranial nerves Cranial nerves 3-12 NL, Reflexes 2+ Psych/Mental Status: Normal mood. laboratory and microbiology Laboratory Tests 11/28/24 04:40 Test 11/28/24 04:40 Range/Units Serum Glucose 78 74-106 mg/dL Microbiology Date/Time Source Procedure Growth Status 11/25/24 13:12 Blood Blood Culture - Preliminary NO GROWTH AFTER 72 HOURS OF INCUBATION. Resulted 11/25/24 10:30 Nose MRSA Screen - Final Complete Problem List/Assessment/Plan Problem List/Assessment/Plan #Sepsis due to cellulitis of the right lower extremity - WBC: 10.4 - IV Fluids NS at 75 mL/hours - IV vancomycin as per pharmacy and - Stopped: IV ceftriaxone 1 g daily - Zocyn IV 3.375mg - Doppler scan of the bilateral lower extremity demonstrated slow /turbulent flow within the left lower extremity deep veins especially in the region of the left common femoral vein and superficial femoral vein. Right inguinal lymphm node measuring 3.2 x 1.4 cm with fatty hilum. - blood culture: no growth at 48hrs -UA: no UTI. # Hypertensive disease with systolic/diastolic disfunction. - Stopped: Losartan 50 mg p.o. daily - Losartan 100 mg p.o. daily # Type 2 diabetes mellitus, hemoglobin A1c 6.6% - Mild sliding scale of insulin -Accu-check # DVT prophylaxis - Lovenox 40 mg sc daily #Anemia Hb: 11.5mg/dl Iron panel FOBT #Obesity BMI: 30.4 Diet: Low carbohydrate and cardiac diet DVT prophylaxis Goals of care discussed with the patient > 35 min. Discussed plan of care with Dr. Wen Code status: Full code PCP: Dr. Gonzalez Plan discussed with: Patient, the patient agrees with the plan. Plan discussed with: Patient My Orders My Orders Orders - CALVIN WESTBROOK Procedure Category Date Status Time Losartan Tablet PHA 11/29/24 In Process (Cozaar Tablet) 10:00 Complete Blood Count LAB 11/29/24 Verified 04:00 Basic Metabolic Panel LAB 11/29/24 Verified 04:00 Sepsis reassessment post fluid Capillary Refill: < 3 seconds Date of Service: Nov 28, 2024 Billing Provider: JENN MONTERROSO MD Common Visit Codes: [id number] INP/OBS CARE(HIGH) Date of Service: Nov 28, 2024 Billing Provider: JENN MONTERROSO MD Common Visit Codes: [id number] INP/OBS CARE(HIGH) CALVIN WESTBROOK Nov 28, 2024 13:50 JENN MONTERROSO MD Nov 28, 2024 21:47
[2024-11-28] MEDS ORDERED: PIPERACILLIN-TAZOB 3.375GM 100 ML IV SCH (20:00)
[2024-11-28] MEDS: PIPERACILLIN-TAZOB 3.375GM 100 ML IV SCH (23:45)
[2024-11-29] VITALS (7 sets, daily range): BP systolic 122–142; BP diastolic 87–98; PULSE 75–96; RESP 17–18; TEMP 97–97.9; O2SAT 93–97
[2024-11-29] MEDS ORDERED: HYDROmorphone HCL 2 MG/ML VL/or syr IV ONE
[2024-11-29 06:55] LABS: Hemoglobin 12.1 g/dL (13.5-17.5)
[2024-11-29 06:57] LABS: Chloride 99 mmol/L (98-107); Hematocrit 35.0 % (41.0-53.0); Mean Corpuscular Hemoglobin 28.4 pg (28.0-32.0); Mean Corpuscular Volume 82.5 fL (80.0-100.0); Nucleated Red Blood Cells % 0.1 %; Potassium 4.1 mmol/L (3.5-5.1)
[2024-11-29 06:58] LABS: Anion Gap 10 (5-15); Calcium 8.9 mg/dL (8.7-10.4); Carbon Dioxide 26 mmol/L (20-31)
[2024-11-29 07:03] LABS: BUN/Creatinine Ratio 8.6 (10.0-20.0); Glucose 102 mg/dL (74-106)
[2024-11-29 07:05] LABS: Blood Urea Nitrogen 8 mg/dL (9-23); Sodium 135 mmol/L (136-145)
[2024-11-29] MEDS: LOSARTAN POTASSIUM 50 MG TAB PO SCH (08:51)
[2024-11-29] MEDS ORDERED: HYDROcodone-ACET 5/325MG TAB PO PRN (09:15)
[2024-11-29] MEDS: HYDROcodone-ACET 10/325MG TAB PO PRN (09:48)
--- NOTE | 2024-11-29 15:04 | DVHPNRES ---
Progress Note Date Seen: Nov 29, 2024 Resident Creating Document: LUCINA MCGILL RESIDENT Medical Necessity Reason Pt with a Central, PICC or Fol: No Subjective Review of Systems Berta Peck is a 44-year-old male, with recently diagnosed DM2 and hypertension. The patient came to the ED with chief complaint of 3 weeks of right leg pain, stabbing/burning like, 08/14, irradiated to the back of the leg, associated with erythema and warmth that surround all the leg. On further questioning, the patient was recently admitted in [facility] on 11/17/24; he was discharged on 11/19/24 with oral antibiotics (Keflex 500 mg p.o. b.i.d for 7 days). The patient report that the pain, edema and erythema returned, he also noticed a new bulla over the right medial malleolus, this prompted his visit to the ED. The patient denies fever, chills, nausea, nausea vomit, abdominal pain or other symptoms.In the ED: WBC:16.5, Hb: 11.5mg/dl. ROS: Constitutional: reports no fever or chills, The patient denied diaphoresis, fatigue, malaise, sweats, weakness, others EENTM: denies: blurred vision, double vision, ear bleeding, ear discharge, ear drainage, ear pain, ear ringing, eye pain, eye redness, hearing loss, mouth pain, mouth swelling, nasal discharge, nose bleeding, nose congestion, nose pain, photophobia, tearing, throat pain, throat swelling, voice changes, others Respiratory: denies: cough, hemoptysis, orthopnea, SOB at rest, shortness of breath, SOB with excertion, stridor, wheezing, others Cardiovascular: denies: chest pain, dizzy spells, diaphoresis, Dyspnea on exertion, edema, irregular heart beat, left arm pain, lightheadedness, palpitations, PND, syncope, others Gastrointestinal: denies: abdomen distended, abdominal pain, blood streaked bowels, constipated, diarrhea, dysphagia, difficulty swallowing, hematemesis, melena, nausea, poor appetite, poor fluid intake, rectal bleeding, rectal pain, vomiting, others Genitourinary: denies: burning, dysuria, flank pain, frequency, hematuria, incontinence, penile discharge, penile sore, pain, testicle pain, testicle swelling, urgency, others Neurological: denies: dizziness, fainting, headache, left sided numbness, left sided weakness, numbness, paresthesia, pre-existing deficit, right sided numbness, right sided weakness, seizure, speech problems, tingling, tremors, weakness, others Musculoskeletal: reports:edema, erythema and pain of right leg Integumetry: reports: others (Redness of right calf ) Hematologic/Lymphatic: denies: anemia, blood clots, easy bleeding, easy bruising, swollen glands, others Endocrine: denies: excessive hunger, excessive sweating, excessive thirst, excessive urination, flushing, intolerance to cold, intolerance to heat, unexplained weight gain, unexplained weight loss, others On 11/26/24, the patient was evaluated at bedside, VS: 154/93mmHg, HR: 98, Febrile: 100.3 F. Labs: WBC: 13.2x10e3/uL, Hb: 11.5mg/dl, HbA1C: 6.6%, rest wnl. The patient reports continues pain 9/10, redness and warmth. The patient's right leg was marked to delineate disease extension and to assess progress. CT of right leg showed: Soft tissue swelling of the right lower extremity at and below the level of the right knee, without evidence of soft tissue abscess. Degenerative changes of the right knee, greatest in the medial compartment. Mild prostatic enlargement. Mildly prominent right inguinal lymph nodes, similar to that seen on CT scan performed 8 days earlier, presumably reactive. The patient is been treated with analgesia and antibiotics: Ceftriaxone 1g and vancomycin 1 gr. The WBC have improved compared with ED levels. Surgery on board, a CT venogram of right leg was ordered. On 11/27/24, the patient was re-evaluated at bedside, the patient reports feeling well, no new complaints. Vs were reviewed, here was no fever during the night. The patient continues with IV antibiotics. WBC levels are improving to 12.7. We will monitoring this patient's progress closely. On 11/28/24, the patient was re-evaluated at bedside, VS, labs and chart was reviewed, BP was elevated this morning, Losartan was increased to 100mg daily. The patient reports feeling better today. the pain has improved to 6/10, the patient is afebrile. Today, Zosyn IV was added. WBC is improving to 10.4. We will continue following up with this patient. On 11/29/24- the patient was seen at bedside today. Charts and labs were reviewed. The patient mentions he notices that the erythema, pain and swelling have improved. White count today is 9.2. Patient currently cannot bear weight on right leg. He was encouraged to slowly try weight bearing. Possible discharge for tomorrow was explained to the patient. Objective vital signs Vital Sign Date Time Temp Pulse Resp B/P (MAP) Pulse Ox O2 Delivery O2 Flow Rate FiO2 11/29/24 13:00 97.0 89 17 122/87 (99) 96 97.0 11/29/24 08:00 Room Air* 0 21 Total Intake and Output 11/28/24 11/28/24 11/29/24 15:00 23:00 07:00 Intake Total 820 ml 700 ml Output Total 800 ml Balance 820 ml -100 ml medications Current Medications Medications Dose Ordered Sig/Francisco Route Start Time Stop Time Status Last Admin Dose Admin Ergocalciferol 50,000 unit Q7D PO 11/25/24 14:45 11/25/24 15:31 50,000 UNIT Acetaminophen 650 mg Q6HPRN PRN PO 11/25/24 14:45 11/26/24 17:49 650 MG Diagnostic Test (Pha) 1 strip ACHS 11/25/24 17:00 11/29/24 11:39 1 STRIP Insulin Human Regular ACHS SC 11/25/24 17:00 11/29/24 06:31 2 UNITS Dextrose 50 ml UD PRN IV 11/25/24 14:45 Vancomycin HCl 0 ml @ 0 mls/hr UD IV 11/25/24 16:00 Enoxaparin Sodium 40 mg DAILY SC 11/26/24 10:00 11/29/24 08:52 40 MG Vancomycin HCl 250 ml @ 166.667 mls/hr Q8H IV 11/27/24 14:00 11/29/24 13:45 166.667 MLS/HR Losartan Potassium 100 mg DAILY PO 11/29/24 10:00 11/29/24 08:51 100 MG Piperacillin Sod/ Tazobactam Sod 100 ml @ 25 mls/hr Q8H IV 11/29/24 00:00 11/29/24 08:00 25 MLS/HR Amlodipine Besylate 5 mg DAILY PO 11/29/24 10:00 11/29/24 08:51 5 MG Acetaminophen/ Hydrocodone Bitart 1 tab Q6HPRN PRN PO 11/29/24 09:30 11/29/24 09:48 1 TAB Examination General Appearance: No in distress alert, oriented X3, Cooperative. HEENT: Atraumatic, PERRLA, EOMI, Mucous membrane moist/pink Respiratory: normal lung expansion. normal breath sounds Cardiovascular: Regular rate, Normal S1, Normal S2, No murmurs, no chest wall tenderness Abdominal: Normal bowel sounds, Soft, No tenderness, No hepatospenomegaly, No masses Extremities: Right leg: Erythema is improving and edema from ankle up to 4cm below the knee. Leg is tender to light touch. Pulses are present 5/5, capillary refill <3 sec. Skin: No rashes, No breakdown, No significant lesion Neuro: Grossly intact cranial nerves Cranial nerves 3-12 NL, Reflexes 2+ Psych/Mental Status: Normal mood. laboratory and microbiology laboratory and microbiology Laboratory Tests 11/29/24 05:05 Test 11/29/24 05:05 Range/Units Serum Glucose 102 74-106 mg/dL Microbiology Date/Time Source Procedure Growth Status 11/25/24 13:12 Blood Blood Culture - Preliminary NO GROWTH AFTER 72 HOURS OF INCUBATION. Resulted 11/25/24 10:30 Nose MRSA Screen - Final Complete Labs and/or images reviewed: Labs reviewed by me, Image(s) reviewed by me Problem List/Assessment/Plan Problem List/Assessment/Plan #Sepsis due to cellulitis of the right lower extremity - IV vancomycin as per pharmacy - Zosyn IV 3.375mg q8hrs - Doppler scan of the bilateral lower extremity demonstrated slow /turbulent flow within the left lower extremity deep veins especially in the region of the left common femoral vein and superficial femoral vein. Right inguinal lymph node measuring 3.2 x 1.4 cm with fatty hilum. - blood culture: no growth at 72hrs # Hypertensive disease - Stopped: Losartan 50 mg p.o. daily - Losartan 100 mg p.o. daily # Type 2 diabetes mellitus, uncontrolled - hemoglobin A1c 6.6% - Mild sliding scale of insulin - Accu-check #Anemia -Hb: 12.1 mg/dl -Iron panel -FOBT #Obesity -BMI: 30.4 -patient counselled on need for healthy lifestyle modifications and dietary changes to lose weight Diet: Low carbohydrate and cardiac diet DVT prophylaxis : Lovenox 40mg sc daily Goals of care discussed with the patient > 35 min. Discussed plan of care with Dr. Valentin Code status: Full code Plan discussed with: Patient My Orders My Orders Orders - LUCINA MCGILL RESIDENT Procedure Category Date Status Time Hydrocodone-Acet PHA 11/29/24 In Process /325mg Tab ([place] 09:30 Dietary Evaluation Review Recommendations by RD: Dietary education by RD Comments: 1) Initiate MVI @ 1 tb qd 2) Add cardiac restriction to 45g CCHO diet 3) Refer to outpatient RD/CDCES for weight management 4) Follow-up with cardiology 5) Continue to monitor I&O, labs, and skin integrity Expected Outcomes/Goals: 1) appetite and labs to improve 2) wound to improve 3) gradual wt loss 4) f/u in 3-5 days Sepsis reassessment post fluid Capillary Refill: < 3 seconds Date of Service: Nov 29, 2024 Billing Provider: JENN VALENTIN MD Common Visit Codes: [id number] INP/OBS CARE(HIGH) LUCINA MCGILL RESIDENT Nov 29, 2024 15:04 JENN VALENTIN MD Nov 29, 2024 17:29
[2024-11-30 01:00] VITALS: BP 129/99; PULSE 93; RESP 18; TEMP 97.5; O2SAT 95
[2024-11-30 04:56] VITALS: BP 139/100; PULSE 90; RESP 18; TEMP 97.5; O2SAT 97
[2024-11-30 06:40] LABS: Anion Gap 10 (5-15); Calcium 9.2 mg/dL (8.7-10.4); Carbon Dioxide 24 mmol/L (20-31); Chloride 100 mmol/L (98-107); Potassium 4.2 mmol/L (3.5-5.1)
[2024-11-30 06:42] LABS: Hematocrit 35.3 % (41.0-53.0); Hemoglobin 11.9 g/dL (13.5-17.5); Mean Corpuscular Hemoglobin 27.9 pg (28.0-32.0); Mean Corpuscular Volume 82.9 fL (80.0-100.0); Nucleated Red Blood Cells % 0.0 %
[2024-11-30 06:45] LABS: Glucose 87 mg/dL (74-106)
[2024-11-30 06:46] LABS: BUN/Creatinine Ratio 11.0 (10.0-20.0); Blood Urea Nitrogen 10 mg/dL (9-23)
[2024-11-30 06:50] LABS: Sodium 134 mmol/L (136-145)
[2024-11-30 09:00] VITALS: BP 128/91; PULSE 87; RESP 18; TEMP 98.6; O2SAT 96
[2024-11-30] MEDS ORDERED: HYDR-4798 PO (13:31)
[2024-11-30] MEDS ORDERED: DOXY100C79 PO ×2 (13:51→13:57)
[2024-11-30] MEDS ORDERED: AUG875T PO ×2 (13:51→13:57)
[2024-11-30] MEDS ORDERED: VANCOMYCIN 1.25GM/250ML 250 ML IV SCH (14:00)
--- NOTE | 2024-11-30 15:09 | DVHDSRES ---
Discharge Summary Date of Admission Resident Creating Document: CALVIN WESTBROOK RESIDENT Nov 25, 2024 at 14:28 Date of Discharge: Nov 30, 2024 Admitting Diagnosis -Sepsis, likely due to Right leg cellulitis -Hypertensive heart disease with systolic/diastolic disfunction -DM type 2 with hyperglycemia Wounds: Right ankle blister. Labs/Diagnostic Data: Laboratory Results Test 11/30/24 11:47 11/30/24 04:16 11/28/24 04:40 11/26/24 14:50 POC Glucose 99 mg/dl (70-106) White Blood Count 9.5 10^3/uL (4.4-10.8) Red Blood Count 4.25 10^6/uL (4.5-5.90) Hemoglobin 11.9 g/dL (13.5-17.5) Hematocrit 35.3 % (41.0-53.0) Mean Corpuscular Volume 82.9 fL (80.0-100.0) Mean Corpuscular Hemoglobin 27.9 pg (28.0-32.0) Mean Corpuscular Hemoglobin Concent 33.7 g/dL (32.0-36.0) Red Cell Distribution Width 13.6 % (11.8-14.3) Platelet Count 516 10^3/uL (140-450) Mean Platelet Volume 7.1 fL (6.9-10.8) Neutrophils (%) (Auto) 71.8 % (37.0-80.0) Lymphocytes (%) (Auto) 18.2 % (10.0-50.0) Monocytes (%) (Auto) 9.5 % (0.0-12.0) Eosinophils (%) (Auto) 0.2 % (0.0-7.0) Basophils (%) (Auto) 0.3 % (0.0-2.0) Neutrophils # (Auto) 6.8 10 ^3/uL (1.6-8.6) Lymphocytes # (Auto) 1.7 10 ^3/uL (0.4-5.4) Monocytes # (Auto) 0.9 10 ^3/uL (0-1.3) Eosinophils # (Auto) 0 10 ^3/uL (0-0.8) Basophils # (Auto) 0 10 ^3/uL (0-0.2) Nucleated Red Blood Cells 0.0 % Sodium Level 134 mmol/L (136-145) Potassium Level 4.2 mmol/L (3.5-5.1) Chloride Level 100 mmol/L (98-107) Carbon Dioxide Level 24 mmol/L (20-31) Anion Gap 10 (5-15) Blood Urea Nitrogen 10 mg/dL (9-23) Creatinine 0.91 mg/dL (0.700-1.30) Glomerular Filtration Rate Calc 107 mL/min (>90) BUN/Creatinine Ratio 11.0 (10.0-20.0) Serum Glucose 87 mg/dL (74-106) Calcium Level 9.2 mg/dL (8.7-10.4) Vancomycin Level Trough 19.9 ug/mL (5-10) Total Bilirubin 0.6 mg/dL (0.2-1.0) Aspartate Amino Transferase (AST) 50 U/L (13-40) Alanine Aminotransferase (ALT) 110 U/L (7-40) Alkaline Phosphatase 99 U/L (46-116) Total Protein 8.0 g/dL (5.7-8.2) Albumin 4.1 g/dL (3.2-4.8) Influenza Type A Antigen Negative (Negative) Influenza Type B Antigen Negative (Negative) SARS-CoV-2 Antigen (Rapid) Negative (NEGATIVE) Test 11/26/24 04:41 11/25/24 13:12 11/25/24 12:35 Free Prostate Specific Antigen 0.11 ng/mL (N/A) Percent Free Prostate Specific Ag 10.0 % (.) Prostate Specific Antigen Total 1.1 ng/mL (0.0-4.0) Lactic Acid Level 1.2 mmol/L (0.4-2.0) Urine Color Light-yellow (Yellow) Urine Clarity Clear (Clear) Urine pH 6.5 (5.0-9.0) Urine Specific Orestes 1.010 (1.001-1.035) Urine Protein Negative (Negative) Urine Ketones 1+ (Negative) Urine Blood Negative /uL (Negative) Urine Nitrite Negative (Negative) Urine Bilirubin Negative (Negative) Urine Urobilinogen Normal mg/dL (Negative) Urine Leukocyte Esterase Negative /uL (Negative) Urine RBC 1 /hpf (0 - 3) Urine Microscopic WBC 2 /HPF (0-3) Urine Squamous Epithelial Cells None seen /hpf (<5) Urine Bacteria None seen /hpf (None Seen) Urine Mucus Few (None Seen) Urine Glucose Normal mg/dL (Normal) Other Laboratory Tests 11/30/24 04:16 Brief Hx & Hospital Course: Berta Peck is a 44-year-old male, with recently diagnosed DM2 and hypertension. The patient came to the ED with chief complaint of 3 weeks of right leg pain, stabbing/burning like, 7/10, irradiated to the back of the leg, associated with erythema and warmth that surround all the leg. On further questioning, the patient was recently admitted in [facility] on 11/17/24; he was discharged on 11/19/24 with oral antibiotics (Keflex 500 mg p.o. b.i.d for 7 days). The patient report that the pain, edema and erythema returned, he also noticed a new bulla over the right medial malleolus, this prompted his visit to the ED. The patient denies fever, chills, nausea, nausea vomit, abdominal pain or other symptoms.In the ED: WBC:16.5, Hb: 11.5mg/dl. Hospital course: On 11/26/24, the patient was evaluated at bedside, VS: 154/93mmHg, HR: 98, Febrile: 100.3 F. Labs: WBC: 13.2x10e3/uL, Hb: 11.5mg/dl, HbA1C: 6.6%, rest wnl. The patient reports continues pain 9/10, redness and warmth. The patient's right leg was marked to delineate disease extension and to assess progress. CT of right leg showed: Soft tissue swelling of the right lower extremity at and below the level of the right knee, without evidence of soft tissue abscess. Degenerative changes of the right knee, greatest in the medial compartment. Mild prostatic enlargement. Mildly prominent right inguinal lymph nodes, similar to that seen on CT scan performed 8 days earlier, presumably reactive. The patient is been treated with analgesia and antibiotics: Ceftriaxone 1g and vancomycin 1 gr. The WBC have improved compared with ED levels. Surgery on board, a CT venogram of right leg was ordered. On 11/27/24, the patient was re-evaluated at bedside, the patient reports feeling well, no new complaints. Vs were reviewed, here was no fever during the night. The patient continues with IV antibiotics. WBC levels are improving to 12.7. We will monitoring this patient's progress closely. On 11/28/24, the patient was re-evaluated at bedside, VS, labs and chart was reviewed ,BP was elevated this morning, Losartan was increased to 100mg daily. The patient reports feeling better today. the pain has improved to 6/10, the patient is afebrile. Zosyn IV was added. WBC is improving to 10.4. We will continue following up with this patient. On 11/29/24- the patient was seen at bedside today. Charts and labs were reviewed. The patient mentions he notices that the erythema, pain and swelling have improved. White count today is 9.2. Patient currently cannot bear weight on right leg. He was encouraged to slowly try weight bearing. Possible discharge for tomorrow was explained to the patient. On 11/30/24, the patient was re-evaluated at bedside, the patient reports feeling well, no new complaints, pain level well controlled 1/10. Vs were reviewed, here was no fever during the night, afebrile for more than 48hrs. WBC levels have improved to normal levels: [id number]/uL. The patient will be discharge home today with oral antibiotics: Augmenting 875/125mg/dl and Doxycycline 100mg for 14 days. The patient will f/u with pcp and discharge clinic in 1 week. ROS: Constitutional: reports no fever or chills, The patient denied diaphoresis, fatigue, malaise, sweats, weakness, others EENTM: denies: blurred vision, double vision, ear bleeding, ear discharge, ear drainage, ear pain, ear ringing, eye pain, eye redness, hearing loss, mouth pain, mouth swelling, nasal discharge, nose bleeding, nose congestion, nose pain, photophobia, tearing, throat pain, throat swelling, voice changes, others Respiratory: denies: cough, hemoptysis, orthopnea, SOB at rest, shortness of breath, SOB with excertion, stridor, wheezing, others Cardiovascular: denies: chest pain, dizzy spells, diaphoresis, Dyspnea on exertion, edema, irregular heart beat, left arm pain, lightheadedness, palpitations, PND, syncope, others Gastrointestinal: denies: abdomen distended, abdominal pain, blood streaked bowels, constipated, diarrhea, dysphagia, difficulty swallowing, hematemesis, melena, nausea, poor appetite, poor fluid intake, rectal bleeding, rectal pain, vomiting, others Genitourinary: denies: burning, dysuria, flank pain, frequency, hematuria, incontinence, penile discharge, penile sore, pain, testicle pain, testicle swelling, urgency, others Neurological: denies: dizziness, fainting, headache, left sided numbness, left sided weakness, numbness, paresthesia, pre-existing deficit, right sided numbness, right sided weakness, seizure, speech problems, tingling, tremors, weakness, others Musculoskeletal: reports:edema, erythema and pain of right leg Integumetry: reports: others (Redness of right calf ) Hematologic/Lymphatic: denies: anemia, blood clots, easy bleeding, easy bruising, swollen glands, others Endocrine: denies: excessive hunger, excessive sweating, excessive thirst, excessive urination, flushing, intolerance to cold, intolerance to heat, unexplained weight gain, unexplained weight loss, others Physical exam: General Appearance: No in distress alert, oriented X3, Cooperative. HEENT: Atraumatic, PERRLA, EOMI, Mucous membrane moist/pink Respiratory: normal lung expansion. normal breath sounds Cardiovascular: Regular rate, Normal S1, Normal S2, No murmurs, no chest wall tenderness Abdominal: Normal bowel sounds, Soft, No tenderness, No hepatospenomegaly, No masses Extremities: Right leg: No erythema, mild edema, non tender to touch. Pulses are present 5/5, capillary refill <3 sec. ROM preserved. Patient can bare weight on his right leg. Skin: No rashes, No breakdown, No significant lesion Neuro: Grossly intact cranial nerves Cranial nerves 3-12 NL, Reflexes 2+ Psych/Mental Status: Normal mood. Consults/Reason for consult Wound consult for evaluation Operations or Procedures PROCEDURE(s): BLDVT - BiLat Lower DVT REASON: Rule out DVT ORDER NUMBER(s): [id number], ACCESSION NUMBER(s): [id number] Technique: Real-time ultrasound imaging, with color Doppler and compression of the bilateral common femoral vein, femoral vein, greater saphenous vein, and popliteal vein. Indication: Rule out DVT Comparison: US BILAT LOWER DVT on DOS: 11/17/24, US BILAT LOWER DVT on DOS: 01/21/23 Findings: There is normal compressibility and flow augmentation in all of the imaged deep veins. There are no filling defects. Slow /turbulent flow within the left lower extremity deep veins especially in the region of the left common femoral vein and superficial femoral vein. Right inguinal lymphm node measuring 3.2 x 1.4 cm with fatty hilum. Impression: No evidence of DVT in the bilateral lower extremities. Sluggish flow within the common femoral/ superficial femoral veins which could be secondary to venous stasis, more proximal venous stenosis, heart failure . If there is concern for more proximal deep vein thrombosis recommend obtaining CT venogram of the abdomen/pelvis EDURE(s): RTLEXW - RT LOWER EXTREMITY W CON REASON: Swelling of rt lower extremity ORDER NUMBER(s): [id number], ACCESSION NUMBER(s): [id number] EXAM: CT RT LOWER EXTREMITY W CON HISTORY: Swelling of rt lower extremity COMPARISON: CT scan of the right lower extremity dated 11/17/2024. TECHNIQUE: Helical CT images of the right lower extremity were performed with IV contrast. Sagittal and coronal reformatted images were obtained. This CT exam was performed using one or more of the following dose reduction techniques: Automated exposure control, adjustment of the mA and/or kv according to patient size, or the use of iterative reconstruction techniques. Radiation Dose Information: CT Dose: CTDI volume is 14.41 mGy. Dose-length product is 1711.22 mGy*cm FINDINGS: No acute fracture is identified about the right femur, tibia, or fibula. No significant degenerative changes of the right hip. There are degenerative changes of the right knee, greatest in the medial compartment. Small plantar calcaneal bone spur and Achilles insertion enthesophyte are incidentally noted. There is a prominent os trigonum. There is subcutaneous edema of the right lower extremity at and below the lower leg. No evidence of soft tissue abscess. No abnormal enhancing lesions are identified here. There are mildly enlarged lymph nodes in the right inguinal region, similar to that seen previously. The prostate is mildly enlarged. IMPRESSION: 1. Soft tissue swelling of the right lower extremity at and below the level of the right knee, without evidence of soft tissue abscess. 2. No fractures are identified about The right lower extremity. 3. Degenerative changes of the right knee, greatest in the medial compartment. 4. Mild prostatic enlargement. 5. Mildly prominent right inguinal lymph nodes, similar to that seen on CT scan performed 8 days earlier, presumably reactive. EDURE(s): BLEAD - BiLat Low Ext Art Duplex REASON: pvd ORDER NUMBER(s): [id number], ACCESSION NUMBER(s): [id number] BILATERAL Lower Extremity Arterial Duplex Date: 11/25/2024 04:53 PM Clinical History: pvd Comparison: None Technique: Duplex Doppler evaluation including color Doppler and spectral/pulsed waveform analysis of the lower extremity arteries was performed. Finding: RIGHT: Peak systolic velocities are as follows: HONEY BLENDER 107 cm/s triphasic waveform Deep femoral 64 cm/s biphasic waveform SFA proximal 94 cm/s triphasic waveform SFA mid-portion 128 cm/s triphasic waveform SFA distal 148 cm/s triphasic waveform, below 30% stenosis Popliteal 102 cm/s triphasic waveform Posterior tibial 92 cm/s triphasic waveform Anterior tibial 64 cm/s triphasic waveform Dorsalis pedis 66 cm/s triphasic waveform The waveforms are biphasic waveform in the deep femoral artery. Triphasic waveform throughout. LEFT: Peak systolic velocities are as follows: HONEY BLENDER 101 cm/s triphasic waveform Deep femoral 71 cm/s triphasic waveform SFA proximal 73 cm/s triphasic waveform SFA mid-portion 84 cm/s triphasic waveform SFA distal 92 cm/s triphasic waveform Popliteal 53 cm/s triphasic waveform Posterior tibial 77 cm/s triphasic waveform Anterior tibial 22 cm/s triphasic waveform Dorsalis pedis 78 cm/s triphasic waveform The waveforms are triphasic waveform throughout. REFERENCE VALUES, [facility] ([facility]) vascular Imaging Lab Criteria: Peak systolic velocity ranges (in cm/sec) are as follows: <150 cm/s - <20 % stenosis 150-200 cm/s - 20-49% stenosis 200-300 cm/s - 50-75% stenosis >300 cm/s -> 75% stenosis IMPRESSION: 1. There is no evidence for peripheral vascular insufficiency in the right lower extremity. 2. There is no evidence for peripheral vascular insufficiency in the left lower extremity. 3. No significant focal stenosis is identified. Electronically Signed by: Ad PROCEDURE(s): CTALE - CT ANGIO LOWER EXTREMITY REASON: To exclude chronic venous stasis of lower extremity ORDER NUMBER(s): [id number], ACCESSION NUMBER(s): [id number] CTA right lower extremity Clinical Indication: To exclude chronic venous stasis of lower extremity Technique: Multiple contiguous axial images were obtained through the right lower extremity involving the distal right femur and through the right lower extremity to the foot following the administration contrast material. Post processing coronal and sagittal reconstruction images were made from the axial images. Image post-processing was obtained. IV contrast: 100 mL Omnipaque 300 DLP: 7.8 mGy ; DLP: 657.56 mGy Comparison: US BILAT LOW EXT ART DUPLEX on DOS: 11/25/24, US BILAT LOWER DVT on DOS: 11/25/24 CT right lower extremity from 11/17/2024 FINDINGS: Normal mineralization and alignment. Mild medial and lateral compartment joint space narrowing and mild tricompartment osteophyte formation compatible with osteoarthritis. There is subchondral lucency in the articular surface of the medial femoral condyle (series 601, image 57). There is no additional acute fracture. No focal osteopenia or cortical destruction to suggest osteomyelitis. There is moderate subcutaneous edema in the visualized right lower extremity. Muscle bundles about the visualized right lower extremity are intact. Small right knee joint effusion. Calcified athero sclerosis is present. No definite filling defect in the opacified veins and arteries. IMPRESSION: 1. Moderate subcutaneous edema in the visualized right lower extremity. No soft tissue gas or fluid collection. 2. No definite filling defect in the opacified veins and arteries in the visualized right lower extremity. 3. Persistent Subchondral lucency in the articular surface of the medial femoral condyle which could reflect a subchondral fracture of indeterminate chronicity or osteochondral fracture. Consider evaluation with MRI if clinically warranted. 4. Small right knee joint effusion. 5. Mild tricompartment osteoarthritis. EDURE(s): CXRP - CHEST PORTABLE REASON: sob ORDER NUMBER(s): [id number], ACCESSION NUMBER(s): [id number] EXAM: XY CHEST PORTABLE Indication: sob Technique: Single frontal view of the chest was obtained Comparison: CT CT ANGIO CHEST CONTRAST on DOS: 01/21/23, XY CHEST PORTABLE on DOS: 01/21/23 FINDINGS: Lines and Tubes: None Lungs: No focal consolidation. Pleura: No effusion. No pneumothorax. Cardiomediastinal contours: Unremarkable Bones: No acute osseous abnormality. IMPRESSION: No acute cardiopulmonary disease. Condition at Discharge: Stable Final Diagnosis/Problems List -Sepsis likely due to Right leg cellulitis -Hypertensive heart disease with systolic/diastolic disfuntion -DM2 with hyperglycemia - Discharge Disposition: Home SNF Discharge Will this Physician continue t: No Discharge Instruct/Medications Diet: Consistent carbohydrate, Cardiac 2g Na,low cholest Diet comment: Cardiac + low carb diet Activity: No Restrictions, As Tolerated Follow Up/Referral: F/U with PCP within 1 week F/U with Discharge clinic Medications: Doxicycline 100mg po bid x 14 days Augmentin 875mg/125mg po bid x 14 days [place] 10/325mg PO Q6hrs Scheduled Amoxicillin & Pot Clavulanate (Augmentin Tablet), 875 MG PO BID Doxycycline (Monohydrate) (Doxycycline), 100 MG PO BID Scheduled PRN Hydrocodone-Acetaminophen (Hydrocodone Bitartrate/AC 10-325 mg), 1 TAB PO Q6HPRN PRN Discontinued Medications Cephalexin (Keflex Capsule), 500 MG PO QID Discharge Statement: "Patient was advised to return to the ER or call 911 if any headaches, dizziness, shortness of breath, chest pain, abdominal pain, bleeding, fevers, or worsening of medical condition. Patient was counseled about treatment plan, medications, possible side effects, patientverbalized understanding. All questions were answered to the best of my ability. This discharge took greater then 30 minutes in planning, reviewing documentation, counseling the patient, and discussing with other team members." ASSESSMENT ASSESSMENT Assessment -Sepsis likely due to Right leg cellulitis -Hypertensive heart disease with systolic/diastolic disfunction -DM2 with hyperglycemia. -Discharge home -Continue with oral Augmenting 875/125mg/dl and Doxycycline 100mg for 14 days -Losartan 50mg po bid -Metformin 1000mg po qd -[place] 10/325mg PO Q6hrs -F/u with pcp within 1 week -F/U with discharge clinic in 1 week. Date of Service: Nov 30, 2024 Billing Provider: JENN MONTERROSO MD Common Visit Codes: 15560-JPP/OBS DISCH DAY >30min Date of Service: Nov 30, 2024 Billing Provider: JENN MONTERROSO MD Common Visit Codes: 54736-BXD/OBS DISCH DAY >30min CALVIN WESTBROOK RESIDENT Nov 30, 2024 15:09 JENN MONTERROSO MD Dec 01, 2024 10:11
== END 2024-11-30 15:45 | disposition home or self-care (01) | DRG 720 ==
LOC: ER 11:43 → OVERFLOW 14:28 → CENTRAL 11-26 01:59
PROVIDERS: ADMIT Internal Medicine; ATTEND Internal Medicine
DX: A41.9 Sepsis, unspecified organism (principal); I50.40 Unspecified combined systolic (congestive) and diastolic (congestive) heart failure; I11.0 Hypertensive heart disease with heart failure; L03.115 Cellulitis of right lower limb; D64.9 Anemia, unspecified; E66.9 Obesity, unspecified; E11.65 Type 2 diabetes mellitus with hyperglycemia; Z20.822 Contact with and (suspected) exposure to COVID-19; N40.0 Benign prostatic hyperplasia without lower urinary tract symptoms; Z83.3 Family history of diabetes mellitus; Z82.49 Family history of ischemic heart disease and other diseases of the circulatory system; Z68.31 Body mass index [BMI] 31.0-31.9, adult
CPT/HCPCS: 36415; 71045; 73701; 73706; 80048; 80053; 80202; 81001; 82962; 83605; 84154; 85025; 87040; 87081; 87426; 87804; 93925; 93970; 96365; G0378; J1815; J2543